=== PATIENT | female | born 1940 | race Caucasian/White ===

== ENCOUNTER 2017-09-21 08:09 | Day surgery (SDC) | payer MEDICARE, OTHER, SELFPAY ==
[2017-09-13 12:36] VITALS: BMI 25.0
[2017-09-21] VITALS (9 sets, daily range): BP systolic 110–157; BP diastolic 71–84; PULSE 70–88; RESP 15–16; TEMP 35.9–36.3; O2SAT 94–99; BMI 25.0
[2017-09-21] MEDS: LACTATED RINGERS 1,000 ML 42 ML IV (08:47)
--- NOTE | 2017-09-21 08:59 | P.HP_ITS ---
History of Present Illness Date Patient Seen: 09/21/17 Time Patient Seen: 08:54 Chief complaint: hernia repair [id number] Narrative: Patient is a woman here for repair of a left inguinal hernia. She has a renal mass with his evaluated by others. She has been in AFib in the past her rate is well controlled with amiodarone and a beta-buck. Had a recent echocardiogram that showed no deteriorate with an injection fraction of 40-45%. She does not tolerate narcotics while at all. They cause severe nausea even with the use of preventative medication. She has a renal mass that is under evaluation by others. Patient History Medical History Arthritis (Acute) Cardiomyopathy (Acute) Constipation (Acute) GERD (gastroesophageal reflux disease) (Acute) Hemorrhoids (Acute) History of tumor (Acute) Hyperlipidemia (Acute) Irregular heartbeat (Acute) PFO (patent foramen ovale) (Acute) Pneumonia (Acute) Sinus drainage (Acute) UTI (urinary tract infection) (Acute) Urinary frequency (Acute) Urinary urgency (Acute) Surgical History History of bilateral tubal ligation (Acute) History of cataract removal with insertion of prosthetic lens Status post breast biopsy Status post colonoscopy Status post tubal ligation Family & Social History Family History: Reviewed 09/21/17 by Jose Kelly MD Social History: household members spouse Tobacco & Substance use: Smoking Status Never smoker alcohol intake current Substance Use Type does not use Meds Home Medications Medication Instructions Recorded Confirmed Type aspirin 81 mg PO DAILY #0 06/15/11 09/21/17 History calcium carbonate [Calcium 500] 500 mg PO DAILY #0 01/02/12 09/21/17 History atorvastatin [Lipitor] 20 mg PO HS #0 07/04/16 09/21/17 History magnesium oxide 500 mg PO Q DAY #0 07/04/16 09/21/17 History amiodarone 100 mg PO QDAY #0 05/29/17 09/21/17 History lisinopril 5 mg PO BID #0 05/29/17 09/21/17 History metoprolol succinate [Toprol XL] 25 mg PO BID #0 05/29/17 09/21/17 History ranitidine HCl [Zantac] 150 mg PO EVERY OTHER DAY #0 02/12/18 06/07/18 History zolpidem 5 mg PO HSP PRN 09/13/17 09/13/17 History cholecalciferol (vitamin D3) 1,000 unit PO DAILY 09/21/17 09/21/17 History [Vitamin D3] zolpidem [Ambien] 5 mg PO BEDTIME PRN 09/21/17 09/21/17 History Allergies Allergy/AdvReac Type Severity Reaction Status Date / Time acyclovir [ACYCLOVIR] Allergy Severe Irreg Verified 09/21/17 08:27 heart rate fentanyl Allergy Severe NAUSEA AND Verified 09/21/17 08:47 EMESIS Sulfa (Sulfonamide Allergy Severe Rash, fever Verified 09/21/17 08:27 Antibiotics) [SULFA (SULFONAMIDE ANTIBIOTICS)] cephalexin [CEPHALEXIN] Allergy Mild Rash Verified 09/21/17 08:27 Review of Systems Review of Systems All systems reviewed & are unremarkable except as noted in HPI and below Cardiovascular Comments: No chest pain. Is active. Recent echo as above. Exam Vital Signs (past 8 hours): Vital Signs - 8 hr 3 09/21/17 08:33 Temperature 96.9 F L Pulse Rate 77 Respiratory Rate 15 Blood Pressure 157/84 H Pulse Oximetry 98 Pulse Oximetry 98 Oxygen Delivery Method Room Air Narrative Exam Narrative: Operative thin woman in no apparent distress. Lungs are clear no rales rhonchi heart regular rate and rhythm despite her history of atrial fibrillation. I can hear no murmurs or gallops with her tones are distant. Abdomen is soft nontender without mass she has a left inguinal hernia and has been marked. It is reducible. Assessment & Plan Plan: Assessment/Plan Narrative: Patient with a left inguinal hernia for repair. I have discussed the procedure with her in the past and she has no questions about it. Risks of bleeding infection recurrence nerve injury have been detailed.
--- NOTE | 2017-09-21 08:59 | PM.PREOP ---
Pre-operative Note Interval Note Pre-op Check: History & Physical exam performed today H&P completed within 30 days and has changed as indicated here:: No changes
[2017-09-21] MEDS: CLINDAMYCIN 900 MG/50 ML PIGGYBACK 100 MG IV (09:00)
[2017-09-21] MEDS: BUPIVACAINE 0.5% (PF) 30 ML VIAL INJ (09:22)
--- NOTE | 2017-09-21 10:26 | PM.OP.1 ---
Operative Date/Time/Diagnoses - Date of procedure: 09/21/17 Time of procedure: 10:26 Pre-op diagnosis: Left inguinal hernia reducible without strangulation or incarceration Post-op diagnosis: same (Indirect) Procedure & Clinicians Procedure: Left inguinal hernia repair with onlay of mesh Same procedure as scheduled: Yes Indications: Symptomatic left inguinal hernia Surgeon: Jose Kelly Click Yes if Unassisted: Yes Anesthesia Type: General Operative Notes Findings: Indirect sac Closure Type: primary Specimen(s): none sent Implants & Drains: 2 x 4 in piece of Prolene mesh Estimated Blood Loss (mL): 5 Procedure in detail: The patient was placed supine on the operating room table and underwent general LMA anesthesia. SHe was prepped and draped in the usual fashion. A transverse incision was made overlying the internal ring and carried down to the level of the external oblique. The external oblique was opened parallel with its fibers through the external ring. The round ligament was identified and detached from the area of the pubic tubercle. The cremaster was opened and search made for an indirect sac. I identified an indirect sac and opened it. It was found to have no contents at this time. A pursestring of 2 of 0 silk was placed and then the sac was tied as well. Distal portion was removed and the stump allowed to retract. The floor was closed over it with an interrupted figure of 0 Tycron.. The floor was examined and was found to be somewhat weakened. A piece of Prolene mesh 2 x 4 in was placed across the floor and tacked at the pubic tubercle, the posterior lamella of the anterior rectus sheath, the ilioinguinal ligament, and superior lateral to the internal ring. Sutures of 0 Tycron were used to secure the mesh. The external oblique was closed with a running 3 0 Polysorb. The subcu was closed with interrupted 3 0 Polysorb. The skin was closed with a running 4 0 Polysorb subcuticular stitch and Steri-Strips. Dressing was applied, the patient was awakened, and the patient was taken to the recovery area in good condition. Complications: none Condition: stable Disposition: PACU Plan for aftercare: Follow-up in the office
== END 2017-09-21 11:30 | disposition home or self-care (01) ==
PROVIDERS: PCP Family Medicine; Visit Provider Specialist
PROC: (CPT 49505; principal; 2017-09-21 08:45)
DX: K40.90 Unilateral inguinal hernia, without obstruction or gangrene, not specified as recurrent (principal); I48.91 Unspecified atrial fibrillation
CPT/HCPCS: 49505; C1781; J0131; J1100; J2405; J2704

== ENCOUNTER → 2017-09-28 11:47 | Outpatient (CLI) | payer MEDICARE, OTHER, SELFPAY ==
--- NOTE | 2017-09-28 | DI.RAD.S_ITS ---
This blank DEXA report has been sent in error by the PACS system. The correct and complete report will be forthcoming in 1-2 days. Thank you for your patience and understanding. Dictated by: Kasi Uribe M.D. on 09/28/2017 at 15:17 Approved by: Kasi Uribe M.D. on 09/28/2017 at 15:17
--- NOTE | 2017-09-28 | DI.US.S_ITS ---
PROCEDURE: US RENAL COMPLETE INDICATIONS: RIGHT RENAL MASS TECHNIQUE: Real-time scanning was performed of the kidneys and bladder, with image documentation. COMPARISON: [facility], CT, ABDOMEN/PELVIS WITH CONTRAST, 06/28/2017, 11:46. FINDINGS: Kidneys: Kidneys are normal in size. Right kidney measures 10.5 cm long; left kidney measures 10.6 cm long. Right renal cortical thickness is 0.9 cm; left renal cortical thickness is 1.3 cm. Renal cortical echotexture is normal. No hydronephrosis or nephrolithiasis. Solid echogenic mass again visualized without any intralateral aspect of the right kidney increased in size now measuring 2.8 x 3.3 x 3.0 cm. Left renal peripelvic cysts present measuring roughly 14 mm. Bladder: Pre-void bladder volume is 133 mL. Post-void residual is 0 mL. Pre-void images demonstrate no intraluminal masses or stones. On pre-void images, neither ureteral jets are noted with color Doppler interrogation. (Of note, ureteral jets may not be detectable in up to 25% of cases due to insufficient differences in specific gravity between ureteral and bladder urine). Miscellaneous: No free pelvic fluid. IMPRESSION: Increase in size of solid exophytic inferior pole right renal mass compared to prior examination suspicious for renal cell carcinoma. Dictated by: Wali Mendoza RRA Interpreted: Ritika Henry MD on 09/28/2017 at 14:16 Approved by: Ritika Henry MD, PhD on 09/29/2017 at 9:27
== END ==
PROVIDERS: PCP Family Medicine; Visit Provider Family Medicine
DX: N28.89 Other specified disorders of kidney and ureter (principal); M85.852 Other specified disorders of bone density and structure, left thigh; Z78.0 Asymptomatic menopausal state; Z82.62 Family history of osteoporosis
CPT/HCPCS: 76770; 77080

== ENCOUNTER → 2017-10-04 11:50 | Outpatient (CLI) | payer MEDICARE, OTHER, SELFPAY ==
--- NOTE | 2017-10-06 14:46 | PM.PFT.1 ---
Pulmonary Function Test Referral & Results Date Patient Seen: 10/04/17 Requesting provider: Yuniel Jacobo Indication: Amiodarone therapy Results: The spirometry demonstrates an FVC of 3.06 L which is 104% of predicted. The FEV1 was measured at 2.34 L which is 106% of predicted. The FEV1/FVC ratio was 76 which is 103% of predicted. No bronchodilator was administered Lung volumes show an SVC of 3.32 L which is 114% of predicted. The diffusing capacity was measured at 26.16 which is 97% of predicted. No hemoglobin value was provided, so no correction for potential anemia could be made, if appropriate. The maximum voluntary ventilation was slightly reduced. Interpretation: This study is essentially normal. Specifically patient's diffusing capacity was normal.
== END ==
PROVIDERS: PCP Family Medicine; Visit Provider Internal Medicine Cardiovascular Disease
DX: Z79.899 Other long term (current) drug therapy (principal)
CPT/HCPCS: 94010; 94726; 94729

== ENCOUNTER → 2017-10-31 10:44 | Outpatient (CLI) | payer MEDICARE, OTHER, SELFPAY ==
--- NOTE | 2017-10-31 | DI.MG.S_ITS ---
BILATERAL DIGITAL SCREENING MAMMOGRAM 3D/2D WITH CAD: 10/31/2017 CLINICAL: Routine screening. Family history of breast cancer. Comparison is made to exams dated: 09/21/2016 mammogram, 09/18/2015 mammogram, and 09/15/2014 mammogram - [facility]. The tissue of both breasts is heterogeneously dense. This may lower the sensitivity of mammography. Current study was also evaluated with a Computer Aided Detection (CAD) system. No significant masses, calcifications, or other findings are seen in either breast. There has been no significant interval change. IMPRESSION: NEGATIVE There is no mammographic evidence of malignancy. A 1 year screening mammogram is recommended. This exam was interpreted at Station ID: [id number]. NOTE: For mammograms, a report in lay terms will be sent to the patient. Approximately 15% of breast malignancies will not be visualized mammographically. In the management of a palpable breast mass, a negative mammogram must not discourage biopsy of a clinically suspicious lesion. Electronically Signed By: Kasi carlos/hugo:10/31/2017 15:01:44 letter sent: Normal Exam ACR BI-RADS Category 1: Negative 3341F
== END ==
PROVIDERS: PCP Family Medicine; Visit Provider Family Medicine
DX: Z12.31 Encounter for screening mammogram for malignant neoplasm of breast (principal); Z80.3 Family history of malignant neoplasm of breast
CPT/HCPCS: 77063; 77067

== ENCOUNTER → 2018-02-14 10:00 | Outpatient (CLI) | payer MEDICARE, OTHER, SELFPAY ==
--- NOTE | 2018-02-14 10:00 | DI.RAD.S_ITS ---
PROCEDURE: XR HIP W PEL IF DONE RT 2V INDICATIONS: right hip pain TECHNIQUE: 2 views of the hip were acquired. COMPARISON: None. FINDINGS: Bones: No fractures or dislocations. No suspicious bony lesions. The visualized pelvic ring appears intact. Moderate degeneration. Soft tissues: No suspicious soft tissue calcifications or masses. IMPRESSION: Mild right hip joint degeneration. Dictated by: Duncan Bravo M.D. on 02/14/2018 at 11:12 Approved by: Duncan Bravo M.D. on 02/14/2018 at 11:13
== END ==
PROVIDERS: PCP Family Medicine; Visit Provider Internal Medicine
DX: M25.551 Pain in right hip (principal); M16.11 Unilateral primary osteoarthritis, right hip
CPT/HCPCS: 73502

== ENCOUNTER → 2018-03-20 09:40 | Outpatient (CLI) | payer MEDICARE, OTHER, SELFPAY ==
--- NOTE | 2018-03-20 | DI.CT.S_ITS ---
PROCEDURE: CT ABDOMEN PELVIS WO/W CON INDICATIONS: RENAL MASS, RIGHT TECHNIQUE: Optional 5 mm thick noncontrast images acquired from the diaphragm to the symphysis pubis. After the administration of intravenous contrast, 5 mm thick images acquired from the diaphragm to the symphysis pubis during arterial phase, and after a 10-minute delay. 2 mm thick coronal and sagittal reformats were then performed of the kidneys and ureters. For radiation dose reduction, the following was used: automated exposure control, adjustment of mA and/or kV according to patient size. COMPARISON: [facility], CT, ABDOMEN/PELVIS WITH CONTRAST, 06/28/2017, 11:46. FINDINGS: Image quality: Excellent. Lung bases: Lung bases are clear. Heart size is enlarged. Urinary system: There is grossly unchanged appearance of exophytic mass along posterior cortex of the right kidney measuring 2.2 x 2.1 cm on axial image 81 series 5. There is internal increased soft tissue attenuation. Unchanged subcentimeter presumed cyst in the upper pole right kidney on image 56, technically too small to characterize definitively. No invasion of the right renal vein Simple appearing left renal cyst on image 63 series 5 also appears unchanged. Renal calyces appear normal in morphology when filled with contrast. Opacified portions of both ureters demonstrate normal caliber. Bladder wall thickness is normal. No calcified bladder stones. Other solid organs: A presumed right hepatic hemangioma appears grossly unchanged. Subcentimeter hypodensities seen in the region of the gallbladder fossa are also unchanged although technically too small to characterize. Gallbladder contains multiple sub-5 mm gallstones without evidence of acute cholecystitis. Biliary system is non dilated. Pancreas enhances normally. Spleen is normal in size and enhancement. No adrenal nodules. Peritoneum and bowel: Small hiatal hernia as before. Otherwise bowel loops demonstrate normal wall thickness and caliber. No free fluid or air. Nodes and vessels: No retroperitoneal or mesenteric adenopathy by size criteria. Aorta and inferior vena cava are normal in size. Abdominal wall: No ventral hernias. Pelvis: No pathologic free pelvic fluid. No inguinal hernias or adenopathy. Bones: No suspicious bony lesions. Incidentally noted scoliosis No vertebral body compression fractures. IMPRESSION: Unchanged appearance of presumed renal cell carcinoma involving the right kidney posterior cortex as before since 06/28/17. No hydronephrosis. No evidence of distant metastatic disease. Cholelithiasis as before. Dictated by: Duncan Bravo M.D. on 03/20/2018 at 10:56 Approved by: Duncan Bravo M.D. on 03/20/2018 at 11:05
[2018-03-20 10:13] LABS: BUN Creatinine Ratio 24.5 (6-22); Blood Urea Nitrogen 27 mg/dL (7-17)
== END ==
PROVIDERS: PCP Family Medicine; Visit Provider Urology
DX: N28.89 Other specified disorders of kidney and ureter (principal); K80.20 Calculus of gallbladder without cholecystitis without obstruction
CPT/HCPCS: 36415; 74178; 82565; 84520; Q9967

== ENCOUNTER → 2018-08-07 09:49 | Outpatient (CLI) | payer MEDICARE, OTHER, SELFPAY ==
--- NOTE | 2018-08-07 | DI.US.S_ITS ---
PROCEDURE: US RENAL COMPLETE INDICATIONS: DISORDER OF KIDNEY, URETER, RT RENAL MASS TECHNIQUE: Real-time scanning was performed of the kidneys and bladder, with image documentation. COMPARISON: [facility], US, ABDOMEN LIMITED, 06/15/2017, 10:35. [facility], CT, ABDOMEN/PELVIS WITH CONTRAST, 06/28/2017, 11:46. [facility], CT, CT ABDOMEN PELVIS WO/W CON, 03/20/2018, 10:15. [facility], US, US RENAL COMPLETE, 09/28/2017, 12:00. FINDINGS: Kidneys: Right kidney measures 10.1 cm long. Right renal cortical thickness is 1.7 cm. There is a 2.9 x 3.0 x 3.0 cm hyperechoic mass in the inferior lateral right kidney unchanged in size compared with the last exam dated 09/28/2017. No right hydronephrosis. Left kidney measures 11.1 cm long. Left renal cortical thickness is 1.3 cm. there is mild left hydronephrosis. No left nephrolithiasis. A simple appearing cyst is noted in the upper pole of the left kidney measuring 2.8 x 2.5 x 2.3 cm. Bladder: Pre-void bladder volume is 537 mL. Post-void residual is 60 mL. Pre-void images demonstrate no intraluminal masses or stones. On pre-void images, both ureteral jets are noted with color Doppler interrogation. (Of note, ureteral jets may not be detectable in up to 25% of cases due to insufficient differences in specific gravity between ureteral and bladder urine). Miscellaneous: No free pelvic fluid. IMPRESSION: 1. Stable hyperechoic solid mass in the lateral aspect of the inferior pole of the right kidney. Presumably a renal cell carcinoma. 2. A simple appearing cyst in the left kidney. 3. Mild left renal pelviectasis. Dictated by: Mat Kruse M.D. on 08/07/2018 at 11:44 Approved by: Mat Kruse M.D. on 08/07/2018 at 11:53
== END ==
PROVIDERS: PCP Family Medicine; Visit Provider Urology
DX: N28.89 Other specified disorders of kidney and ureter (principal); N28.1 Cyst of kidney, acquired
CPT/HCPCS: 76770

== ENCOUNTER → 2018-08-16 11:01 | Outpatient (CLI) | payer MEDICARE, OTHER, SELFPAY ==
[2018-08-16 12:19] LABS: Alanine Aminotransferase 30 IU/L (9-52); Albumin 4.6 g/dL (3.5-5.0); Albumin Globulin Ratio 1.6 (1.0-2.8); Alkaline Phosphatase 102 U/L (38-126); Aspartate Aminotransferase 37 IU/L (14-36); BUN Creatinine Ratio 24.5 (6-22); Bilirubin Total 0.6 mg/dL (0.2-1.3); Blood Urea Nitrogen 27 mg/dL (7-17); Calcium 9.9 mg/dL (8.4-10.2); Carbon Dioxide 31 mmol/L (22-32); Chloride 100 mmol/L (98-107); Cholesterol 214 mg/dL (140-199); Estimated Glomerular Filt Rate 47.9 mL/min (>60); Globulin 2.9 g/dL (1.7-4.1); Glucose 77 mg/dL (80-110); HDL Cholesterol 49 mg/dL (40-60); HEMOLYSIS < 15 (0-50); LDL Cholesterol Calculated 124 mg/dL (<100); Sodium 141 mmol/L (137-145); Total Protein 7.5 g/dL (6.3-8.2); Triglycerides 203 mg/dL (35-150)
[2018-08-16 12:25] LABS: Creatinine Urine Random 66.2 mg/dL
[2018-08-16 12:26] LABS: Microalbumin Urine Random 0.8 mg/dL (0-1.6)
[2018-08-16 12:58] LABS: TSH w/ Reflex to FT4 2.65 uIU/mL (0.47-4.68)
== END ==
PROVIDERS: PCP Family Medicine; Visit Provider Family Medicine
DX: I50.22 Chronic systolic (congestive) heart failure (principal); E06.4 Drug-induced thyroiditis; T46.2X5A Adverse effect of other antidysrhythmic drugs, initial encounter; I11.0 Hypertensive heart disease with heart failure
CPT/HCPCS: 36415; 80053; 80061; 82043; 82570; 84443

== ENCOUNTER → 2018-10-03 09:39 | Outpatient (CLI) | payer MEDICARE, OTHER, SELFPAY ==
--- NOTE | 2018-10-03 09:44 | DI.US.S_ITS ---
PROCEDURE: US SOFT TISSUE HEAD AND NECK INDICATIONS: SWOLLEN SUBMANDIBULAR LYMPH NODE? TECHNIQUE: Real-time scanning was performed of the neck region of interest, with image documentation. COMPARISON: None. FINDINGS: Focused ultrasound examination in left submandibular region at patient reported site of palpable lump shows 1.6 x 0.4 cm lymph node adjacent to left carotid bulb with cortical thickness measures 1.3 mm. IMPRESSION: Benign appearing lymph nodes seen in left submandibular region superficial to torturous left carotid bulb. No soft tissue mass or fluid collection is seen. Dictated by: Catrachito Franco M.D. on 10/03/2018 at 13:04 Approved by: Catrachito Franco M.D. on 10/03/2018 at 13:05
[2018-10-03 11:37] LABS: Basophils Absolute Auto 0 /uL (0-100); Eosinophils Absolute Auto 200 /uL (0-450); Eosinophils Percent Auto 5.7 % (2-4); Lymphocytes Absolute Auto 1200 /uL (1100-4500); Monocytes Absolute Auto 400 /uL (0-900); Neutrophils Absolute Auto 2200 /uL (1500-7000); White Blood Cell Count 4.1 X10^3/uL (4.5-11.0)
[2018-10-03 11:46] LABS: Add Manual Diff / Slide Review NO; Basophils Percent Auto 1.1 % (0-2); Hemoglobin 14.7 g/dL (12.0-16.0); Lymphocytes Percent Auto 28.8 % (25-40); Mean Corpuscular HGB Conc 32.6 % (30-36); Mean Corpuscular Hemoglobin 30.3 PG (26-34); Monocytes Percent Auto 9.7 % (3-14); Neutrophils Percent Auto 54.7 % (50-75); Platelet Count 175 X10^3/uL (150-400); Red Blood Cell Count 4.84 X10^6/uL (4.0-5.2); Red Cell Distribution Width 13.5 % (11.6-14.8)
== END ==
PROVIDERS: PCP Family Medicine; Visit Provider Family Medicine
DX: R59.0 Localized enlarged lymph nodes (principal)
CPT/HCPCS: 36415; 76536; 85025

== ENCOUNTER → 2018-11-21 11:31 | Outpatient (CLI) | payer MEDICARE, OTHER, SELFPAY ==
[2018-11-21 12:36] LABS: Blood Urea Nitrogen 28 mg/dL (7-17); Estimated Glomerular Filt Rate 53.5 mL/min (>60)
== END ==
PROVIDERS: PCP Family Medicine; Visit Provider Otolaryngology
DX: R22.1 Localized swelling, mass and lump, neck (principal)
CPT/HCPCS: 36415; 82565; 84520

== ENCOUNTER → 2018-11-28 09:33 | Outpatient (CLI) | payer MEDICARE, OTHER, SELFPAY ==
--- NOTE | 2018-11-28 10:06 | DI.CT.S_ITS ---
PROCEDURE: CT SOFT TISSUE NECK W CON INDICATIONS: Localized swelling, mass and lump, neck TECHNIQUE: After the administration of intravenous contrast, 3.0 mm axial sections acquired from the sella to the aortic arch. Additional oblique axial 3.0 mm sections acquired through the pharynx. 3 mm thick coronal and sagittal reformats were generated. For radiation dose reduction, the following was used: automated exposure control. COMPARISON: [facility], , US SOFT TISSUE HEAD AND NECK, 10/03/2018, 10:05. [facility], CT, SINUS SCREEN, 02/18/2009, 8:38. FINDINGS: Image quality: Excellent. Lymph nodes: No enlarged lymph nodes seen throughout the neck. Vessels: Visualized vasculature appears patent. Neck spaces: The oropharynx, nasopharynx, and pharynx demonstrate no mucosal lesions. The vocal cords, false vocal cords, pyriform sinuses, epiglottis, vallecula, and tongue base all appear normal. One of the areas of clinical concern is seen involving the left lateral neck. This is placed immediately over the left sternocleidomastoid muscle. No masses, lipomas, fluid collections, or enlarged lymph nodes can be seen within this region. Glands: One of the areas of clinical concern can be seen overlying the right. At this site, there is a partially exophytic mass seen involving the medial right thyroid that measures 1.5 x 1.7 cm in greatest axial dimension, with a craniocaudal extent of 2.3 cm. There is a subcentimeter cystic appearing lesion within the superior right thyroid as well. The parotid and submandibular glands appear normal. Miscellaneous: Visualized brain and orbits appear normal. Lung apices appear clear. Superficial soft tissues appear normal. Bones: No suspicious bony lesions. There is a mucous retention cyst seen within the left maxillary sinus. No abnormal fluid can be seen within the mastoid air cells. Age-appropriate bony degenerative changes are seen. IMPRESSION: At one of the areas of clinical concern, there is a 2.3 cm thyroid lesion. A followup thyroid ultrasound is now recommended. At the 2nd area of clinical concern involving the left lateral neck, no focal abnormalities are seen. The marker is placed immediately over the left sternocleidomastoid muscle. Dictated by: Ganesh Carson M.D. on 11/28/2018 at 12:42 Approved by: Ganesh Carson M.D. on 11/28/2018 at 12:47
== END ==
PROVIDERS: PCP Family Medicine; Visit Provider Otolaryngology
DX: R22.1 Localized swelling, mass and lump, neck (principal); E07.9 Disorder of thyroid, unspecified
CPT/HCPCS: 70491; Q9967

== ENCOUNTER → 2018-12-12 09:24 | Outpatient (CLI) | payer MEDICARE, OTHER, SELFPAY ==
--- NOTE | 2018-12-12 09:25 | DI.US.S_ITS ---
PROCEDURE: US THYROID INDICATIONS: THYROID NODULE TECHNIQUE: Real-time scanning was performed of the thyroid gland, with image documentation. COMPARISON: None. FINDINGS: Right: Thyroid lobe measures 5.2 x 1.5 x 1.8 cm, and is homogeneous in echotexture. Left: Thyroid lobe measures 4.8 x 1.6 x 1.3 cm, and is homogenous in echotexture. Isthmus: 4.0 mm thick. Nodule number: 1 Location: Right mid Size: 2.1 x 1.2 x 1.6 cm. Composition: Predominantly solid Echogenicity: Hyperechoic Shape: wider than tall. Margins: Smooth Echogenic foci: Internal punctate echogenic foci. Total points: 6 ACR TI-RADS category: Moderately suspicious Nodule number: 2 Location: Right inferior Size: 1.3 x 1.0 x 1.1 cm. Composition: Solid Echogenicity: Hypoechoic Shape: wider than tall. Margins: Smooth Echogenic foci: Internal echogenic punctate foci. Total points: 7 ACR TI-RADS category: Highly suspicious Nodule number: 3 Location: Left mid Size: 1.0 x 0.8 x 0.9 cm. Composition: Predominantly solid Echogenicity: Isoechoic Shape: wider than tall. Margins: Smooth Echogenic foci: Internal punctate echogenic foci Total points: 6 ACR TI-RADS category: Moderately suspicious IMPRESSION: Bilateral thyroid nodules as above. Recommend ultrasound directed fine needle aspiration involving the right # 1 and # 2 nodules. ACR TI-RADS definitions and recommendations: TI-RADS 1 (benign): 0 points. FNA not needed. TI-RADS 2 (not suspicious): 2 points. FNA not needed. TI-RADS 3 (mildly suspicious): 3 points. * FNA if 2.5 cm or larger, follow up if 1.5 cm or larger (at 1, 3, and 5 years). TI-RADS 4 (moderately suspicious): 4-6 points. * FNA if 1.5 cm or larger, follow up if 1 cm or larger (at 1, 2, 3, and 5 years). TI-RADS 5 (highly suspicious): 7 points or more. * FNA if 1 cm or larger, follow up if 0.5 cm or larger (every year for 5 years). Dictated by: Wali MATA Interpreted: Catrachito Franco MD on 12/12/2018 at 11:01 Approved by: Catrachito Franco M.D. on 12/12/2018 at 11:41
== END ==
PROVIDERS: PCP Family Medicine; Visit Provider Family Medicine
DX: E04.1 Nontoxic single thyroid nodule (principal); Z12.31 Encounter for screening mammogram for malignant neoplasm of breast
CPT/HCPCS: 76536

== ENCOUNTER → 2018-12-21 13:00 | Outpatient (CLI) | payer MEDICARE, OTHER, SELFPAY ==
--- NOTE | 2018-12-21 | DI.MG.S_ITS ---
BILATERAL DIGITAL SCREENING MAMMOGRAM 3D/2D WITH CAD: 12/21/2018 CLINICAL: Routine screening. Family history of breast cancer. Comparison is made to exams dated: 10/31/2017 mammogram, 09/21/2016 mammogram, and 09/18/2015 mammogram - [facility]. The tissue of both breasts is heterogeneously dense. This may lower the sensitivity of mammography. Current study was also evaluated with a Computer Aided Detection (CAD) system. There is an irregular asymmetry in the left breast anterior to middle depth lateral region seen on the craniocaudal view only. There is possible architectural distortion associated with the asymmetry. There are bilateral vascular calcifications. There is a circular mole marker overlying the left breast. No other significant masses, calcifications, or other findings are seen in either breast. IMPRESSION: INCOMPLETE: NEEDS ADDITIONAL IMAGING EVALUATION The irregular asymmetry in the left breast anterior to middle depth lateral region seen on the craniocaudal view only is indeterminate. Additional views with possible ultrasound are recommended. This exam was interpreted at Station ID: [id number]. NOTE: For mammograms, a report in lay terms will be sent to the patient. Approximately 15% of breast malignancies will not be visualized mammographically. In the management of a palpable breast mass, a negative mammogram must not discourage biopsy of a clinically suspicious lesion. Electronically Signed By: Michel Medellin M.D. ecl/:12/21/2018 17:48:58 letter sent: Additional Imaging Needed ACR BI-RADS Category 0: Incomplete 3340F
== END ==
PROVIDERS: PCP Family Medicine; Visit Provider Family Medicine
DX: Z12.31 Encounter for screening mammogram for malignant neoplasm of breast (principal); Z80.3 Family history of malignant neoplasm of breast
CPT/HCPCS: 77063; 77067

== ENCOUNTER → 2019-01-08 12:59 | Outpatient (CLI) | payer MEDICARE, OTHER, SELFPAY ==
--- NOTE | 2019-01-08 | DI.MG.S_ITS ---
UNILATERAL LEFT DIGITAL DIAGNOSTIC MAMMOGRAM 3D/2D WITH ADDITIONAL VIEWS: 01/08/2019 CLINICAL: Additional evaluation requested from prior study. Comparison is made to exams dated: 12/21/2018 mammogram, 10/31/2017 mammogram, and 09/21/2016 mammogram - [facility]. The tissue of left breast is heterogeneously dense. This may lower the sensitivity of mammography. The asymmetry in the left breast anterior depth lateral region seen on the craniocaudal view only is not seen in additional views. No other significant masses or calcifications are seen in the breast. IMPRESSION: There is no mammographic evidence of malignancy. A 1 year screening mammogram is recommended. This exam was interpreted at Station ID: [id number]. NOTE: For mammograms, a report in lay terms will be sent to the patient. Approximately 15% of breast malignancies will not be visualized mammographically. In the management of a palpable breast mass, a negative mammogram must not discourage biopsy of a clinically suspicious lesion. Electronically Signed By: Whitney Gentile M.D. lk/:01/08/2019 13:31:41 letter sent: Normal Exam ACR BI-RADS Category 2: Benign Finding(s) 3342F
== END ==
PROVIDERS: PCP Family Medicine; Referring Provider Otolaryngology; Visit Provider Family Medicine
DX: R92.8 Other abnormal and inconclusive findings on diagnostic imaging of breast (principal)
CPT/HCPCS: 77065; G0279

== ENCOUNTER → 2019-04-02 09:53 | Outpatient (CLI) | payer MEDICARE, OTHER, SELFPAY ==
--- NOTE | 2019-04-02 10:19 | DI.CT.S_ITS ---
PROCEDURE: CT ABDOMEN WO/W CON INDICATIONS: RENAL MASS TECHNIQUE: Optional 5 mm thick noncontrast images acquired from the diaphragm to the iliac crests. After the administration of intravenous contrast, 5 mm thick images again acquired from the diaphragm to the iliac crests in the arterial and urographic phases. 5 mm thick coronal and sagittal reformats were then acquired. For radiation dose reduction, the following was used: automated exposure control, adjustment of mA and/or kV according to patient size. COMPARISON: [facility], US, ABDOMEN LIMITED, 06/15/2017, 10:35. [facility], US, US RENAL COMPLETE, 09/28/2017, 12:00. [facility], CT, ABDOMEN/PELVIS WITH CONTRAST, 06/28/2017, 11:46. [facility], CT, CT ABDOMEN PELVIS WO/W CON, 03/20/2018, 10:15. FINDINGS: Image quality: Excellent. Lung bases: Lung bases are clear. Heart size is normal. Small hiatal hernia. Genitourinary: There is an exophytic mass in the inferior pole of the right kidney demonstrating mixed soft tissue and fat attenuation with heterogeneous enhancement measuring 2.5 x 2.2 x 2.5 cm, unchanged in size since 06/28/2017. There are renal cortical cysts are present bilaterally. No renal stones or hydronephrosis. Other solid organs: The liver contains a 1.8 cm mass in the posterior segment of the right hepatic lobe under the posterior hepatic capsule, demonstrating peripheral enhancement consistent with a hemangioma. Liver is normal in size. Gallbladder contains gallstones. Biliary system is non dilated. Pancreas enhances normally. Spleen is normal in size and enhancement. Calcified densities in spleen may be old granulomas. No adrenal nodules. Peritoneum and bowel: Unenhanced bowel loops are normal in wall thickness and caliber. No free fluid or air. Nodes and vessels: No retroperitoneal or mesenteric adenopathy by size criteria. Aorta isnormal in caliber with mild atherosclerosis. The right renal vein is patent, as well as the IVC. Bones: No suspicious bony lesions. No vertebral body compression fractures. Mild scoliosis. Degenerative changes noted in lumbar spine. Miscellaneous: No ventral hernias. IMPRESSION: 1. Stable exophytic heterogeneous enhancing mass inferior pole the right kidney since 06/28/2017. This may be a fat containing renal cell carcinoma or angiomyolipoma. 2. No lymphadenopathy or distant metastasis. 3. A 1.8 cm hepatic hemangioma in the posterior segment of the right hepatic lobe. 4. Cholelithiasis. 5. Small hiatal hernia. Dictated by: Mat Kruse M.D. on 04/02/2019 at 16:22 Approved by: Mat Kruse M.D. on 04/02/2019 at 16:44
== END ==
PROVIDERS: PCP Family Medicine; Visit Provider Urology
DX: N28.89 Other specified disorders of kidney and ureter (principal); D18.09 Hemangioma of other sites; K80.20 Calculus of gallbladder without cholecystitis without obstruction; K44.9 Diaphragmatic hernia without obstruction or gangrene
CPT/HCPCS: 74170; Q9967

== ENCOUNTER → 2019-10-25 12:05 | Outpatient (CLI) | payer MEDICARE, OTHER, SELFPAY ==
[2019-10-25 13:48] LABS: Alanine Aminotransferase 27 IU/L (<35); Albumin 4.5 g/dL (3.5-5.0); Albumin Globulin Ratio 1.7 (1.0-2.8); Alkaline Phosphatase 105 U/L (38-126); Aspartate Aminotransferase 39 IU/L (14-36); BUN Creatinine Ratio 30.2 (6-22); Bilirubin Total 0.8 mg/dL (0.2-1.3); Blood Urea Nitrogen 29 mg/dL (7-17); Carbon Dioxide 32 mmol/L (22-32); Chloride 102 mmol/L (98-107); Estimated Glomerular Filt Rate 55.9 mL/min (>60); Globulin 2.7 g/dL (1.7-4.1); Glucose 76 mg/dL (80-110); HEMOLYSIS < 15 (0-50); Potassium 4.9 mmol/L (3.4-5.1); Sodium 139 mmol/L (137-145); Total Protein 7.2 g/dL (6.3-8.2)
== END ==
PROVIDERS: PCP Family Medicine; Referring Provider Family Medicine; Visit Provider Family Medicine
DX: I10 Essential (primary) hypertension (principal); N18.9 Chronic kidney disease, unspecified
CPT/HCPCS: 36415; 80053

== ENCOUNTER → 2020-01-03 11:24 | Outpatient (CLI) | payer MEDICARE, OTHER, SELFPAY ==
[2020-01-05 15:32] LABS: COVID19 Sendout Not Detected (Not Detect)
== END ==
PROVIDERS: PCP Family Medicine; Visit Provider Physician Assistant
DX: Z11.59 Encounter for screening for other viral diseases (principal)
CPT/HCPCS: 87635

== ENCOUNTER 2020-01-06 10:37 | Day surgery (SDC) | payer MEDICARE, OTHER, SELFPAY ==
[2020-01-06] VITALS (8 sets, daily range): BP systolic 102–152; BP diastolic 54–84; PULSE 55–72; RESP 12–17; TEMP 36.2–36.9; O2SAT 95–99; BMI 25.0
--- NOTE | 2020-01-06 | PATH_ITS ---
[facility] Accession Number: [id number] . 01 Material submitted: . PART A: cecum - CECUM POLYP PART B: colon - POLYP @25 CM . 01 Clinical history: . SCD . 02 Diagnosis: A. Cecum, Polyp, Biopsy: Benign lymphoid aggregate. . B. Colon, Polyp at 25 cm, Biopsy: Hyperplastic polyp. [facility] 01/09/2020 1544 Local . 02 Electronically signed: . Suni Baker MD, Pathologist NPI- [id number] . 01 Gross description: . Part A: CECUM POLYP: Received in formalin is 1 fragment(s) of murry, soft tissue measuring 0.3 x 0.2 x 0.2 cm submitted entirely in 1 cassette(s) Part B: POLYP @25 CM: Received in formalin are 3 fragment(s) of murry, soft tissue measuring 0.1 x 0.1 x 0.1 cm to 0.4 x 0.4 x 0.2 cm submitted entirely in 1 cassette(s) /DION 01/08/2020 0006 Local . 02 Pathologist provided ICD-10: K63.5 . 02 CPT . 550134, [id number] Performed at: 01 [facility] [address], [place], [place] [id number] MD Wesly Viveros MD Phone: [phone] Performed at: 02 [facility] [address] [place], [place] [id number] MD Suni Baker MD Phone: [phone]
[2020-01-06] MEDS: ACETAMINOPHEN 325 MG TABLET 975 MG PO (11:57)
[2020-01-06] MEDS: LACTATED RINGERS 1,000 ML 42 ML IV (11:58)
--- NOTE | 2020-01-06 12:05 | PM.HP.1 ---
History of Present Illness History of Present Illness Date Patient Seen: 01/06/20 Time Patient Seen: 12:00 Chief complaint: SDC Narrative: The patient is woman here for screening colonoscopy. She has a family history colon cancer. She thinks her last colonoscopy was about 16 years ago. Patient History Medical History Arthritis (Chronic) Cardiomyopathy (Acute) Chickenpox (Resolved) Constipation (Chronic) GERD (gastroesophageal reflux disease) (Chronic) Hemorrhoids (Chronic) History of tumor (Resolved) Hyperlipidemia (Chronic) Hypertension (Chronic) Inguinal hernia of left side without obstruction or gangrene (Resolved 05/29/17) Irregular heartbeat (Chronic) Measles (Resolved) Osteopenia (Chronic) PFO (patent foramen ovale) (Chronic) Pneumonia (Resolved) Sinus drainage (Chronic) Thyroid nodule (Acute) Tinnitus (Chronic) UTI (urinary tract infection) (Chronic) Surgical History Anesthesia complication (Inactive) H/O left inguinal hernia repair (Inactive) History of bilateral tubal ligation (Acute) History of cataract removal with insertion of prosthetic lens Status post breast biopsy Status post colonoscopy Status post tubal ligation Family & Social History Family History Mother History of colon cancer Brother No problems noted. Brother No problems noted. Father No problems noted. Grandmother No problems noted. Grandmother No problems noted. Social History: household members spouse Tobacco & Substance use: Smoking Status Never smoker alcohol intake current alcohol intake frequency a few times a month Substance Use Type does not use Meds Home Medications and Allergies Home Medications Medication Instructions Recorded Confirmed Type magnesium oxide 500 mg PO Q DAY #0 07/04/16 01/06/20 History cholecalciferol (vitamin D3) 1,000 unit PO DAILY 09/21/17 01/06/20 History [Vitamin D3] lisinopril 5 mg tablet 5 mg PO DAILY 10/25/19 01/06/20 History metoprolol succinate 100 mg 100 mg PO BID 10/25/19 01/06/20 History tablet,extended release 24 hr Allergies Allergy/AdvReac Type Severity Reaction Status Date / Time acyclovir [ACYCLOVIR] Allergy Severe Irreg Verified 01/06/20 11:06 heart rate fentanyl Allergy Severe NAUSEA AND Verified 01/06/20 11:06 EMESIS Sulfa (Sulfonamide Allergy Severe Rash, fever Verified 01/06/20 11:06 Antibiotics) [SULFA (SULFONAMIDE ANTIBIOTICS)] cephalexin [CEPHALEXIN] Allergy Mild Rash Verified 01/06/20 11:06 clindamycin Allergy Mild Lip Verified 01/06/20 11:06 swelling amoxicillin Allergy Rash Verified 01/06/20 11:06 Review of Systems Review of Systems Narrative: No chest pain shortness of breath cough black or bloody bowel movement seizures or blackouts. Exam Vital Signs (past 8 hours): - 01/06/20 11:14 Temperature 97.8 F Pulse Rate 72 Respiratory Rate 12 Blood Pressure 152/84 H Pulse Oximetry 99 Oxygen Delivery Method Room Air Narrative Exam Narrative: Pleasant cooperative patient no apparent distress. Lungs are clear to auscultation. No rales or rhonchi. Heart regular rate and rhythm no murmur gallop. Abdomen is soft nontender without mass. No obvious hernias. Patient is alert and oriented x3. Assessment & Plan Assessment & Plan narrative: The patient for a screening colonoscopy. I have discussed the procedure with them. Risks of bleeding, perforation which would necessitate major operation, failure to find remove all lesions, the potential tattoo were all discussed. All questions were answered. They wished to proceed.
--- NOTE | 2020-01-06 12:10 | PM.PREOP ---
Pre-operative Note COVID-19 COVID-19 status: Negative Result date/Date tested (Pos, Neg/Pending): 01/03/20 Interval Note History & Physical reviewed/Exam performed by Physician: Yes Changes to H&P: No
--- NOTE | 2020-01-06 12:41 | PM.OP.ENDO ---
Operative Date/Time/Diagnoses Date of procedure: 01/06/20 Time of procedure: 12:41 Pre-op diagnosis: Screening exam. Last exam 16 years ago per her history. Post-op diagnosis: same Procedure & Clinicians Study performed: Colonoscopy with cold biopsy Same procedure as scheduled: Yes Indications: Screening. Patient has a family history of colon cancer. Surgeon: Jose Kelly Procedure Notes SCOAP/Timeout: Performed Procedure in detail: The patient was placed in the left lateral decubitus position and underwent IV sedation directed by the anesthesiologist. They were involved because the patient has a severe reaction to narcotics and therefore nonnarcotic sedation was necessary.. Digital exam was remarkable for some narrowing at the anus.. The scope was inserted and advanced through the rectum into the sigmoid, descending, transverse, and ascending colon. No lesions were seen. The cecum was reached identified by the ileocecal valve and the appendiceal opening. There was a very small polyp near the appendiceal opening which was biopsied and removed. The scope was gradually brought out. Polyps were found at around 25 cm from the anal verge. There were 3 of them in all were quite small. They may not be neoplastic. They were removed.. The scope ultimately was retroflexed in the rectum. The appearance was normal. The scope was removed and the patient tolerated the procedure well. The prep was very good. Scope withdrawal time: 6 minutes(8 total) Sedation minutes: 0 (Deep sedation provided by the anesthesiologist.) Findings: polyp (Small polyps) Specimen(s): other (Polyps) Complications: none Post-procedure Recommendations: Colonscopy in 5 years (If in good health.) Follow up: as needed Disposition: PACU
--- NOTE | 2020-01-06 13:40 | SUR.PHASEII ---
Pt up to br, gait steady, getting dressed now. All dc instructions given by EZIO Ponce and pt verbalizes understanding. No c/o.
--- NOTE | 2020-01-06 13:49 | SUR.PHASEII ---
1349-Pt dcd via wc in stable condition with no c/o. Family, daughter and at bs earlier and all dc instructions given to pt and family all verbalize understanding
--- NOTE | 2020-01-06 14:16 | SUR.PHASEI ---
1243 late entry arrived to PACU sleeping quietly 1310 VSS, Aroused spontaneously, denies pain. 1315 HOB elevated, water give. Oriented and pleasant 1320 To OPD, report given
== END 2020-01-06 13:50 | disposition home or self-care (01) ==
PROVIDERS: PCP Family Medicine; Referring Provider Family Medicine; Visit Provider Specialist
PROC: 0DJD8ZZ Inspection of Lower Intestinal Tract, Via Natural or Artificial Opening Endoscopic (ICD-10-PCS; CPT 45378; principal; 2020-01-06 12:15)
DX: Z12.11 Encounter for screening for malignant neoplasm of colon (principal); Z80.0 Family history of malignant neoplasm of digestive organs; I10 Essential (primary) hypertension; K21.9 Gastro-esophageal reflux disease without esophagitis; K63.5 Polyp of colon
CPT/HCPCS: 45380; J2704

== ENCOUNTER → 2020-01-15 10:39 | Outpatient (CLI) | payer MEDICARE, OTHER, SELFPAY ==
--- NOTE | 2020-01-15 | DI.MG.S_ITS ---
BILATERAL DIGITAL SCREENING MAMMOGRAM 3D/2D WITH CAD: 01/15/2020 CLINICAL: Routine screening. Family history of breast cancer. Comparison is made to exams dated: 01/08/2019 mammogram, 12/21/2018 mammogram, 10/31/2017 mammogram, and 09/21/2016 mammogram - [facility]. The tissue of both breasts is heterogeneously dense. This may lower the sensitivity of mammography. Current study was also evaluated with a Computer Aided Detection (CAD) system. There are benign vascular calcifications in both breasts. No significant masses, calcifications, or other findings are seen in either breast. There has been no significant interval change. IMPRESSION: BENIGN There is no mammographic evidence of malignancy. A 1 year screening mammogram is recommended. This exam was interpreted at Station ID: [id number]. NOTE: For mammograms, a report in lay terms will be sent to the patient. Approximately 15% of breast malignancies will not be visualized mammographically. In the management of a palpable breast mass, a negative mammogram must not discourage biopsy of a clinically suspicious lesion. Electronically Signed By: Gisselle aburto/hugo:01/15/2020 12:03:06 letter sent: Normal Exam ACR BI-RADS Category 2: Benign Finding(s) 3342F
== END ==
PROVIDERS: PCP Family Medicine; Referring Provider Family Medicine; Visit Provider Family Medicine
DX: Z12.31 Encounter for screening mammogram for malignant neoplasm of breast (principal); Z80.3 Family history of malignant neoplasm of breast
CPT/HCPCS: 77063; 77067

== ENCOUNTER → 2020-01-23 10:56 | Outpatient (CLI) | payer MEDICARE, OTHER, SELFPAY ==
--- NOTE | 2020-01-23 | DI.US.S_ITS ---
PROCEDURE: US THYROID INDICATIONS: Nontoxic multinodular goiter TECHNIQUE: Real-time scanning was performed of the thyroid gland, with image documentation. COMPARISON: [facility], US, US THYROID, 12/12/2018, 9:43. FINDINGS: Right: Thyroid lobe measures 4.9 x 2.0 x 1.2 cm, and is homogeneous in echotexture. Left: Thyroid lobe measures 5.3 x 1.8 x 1.8 cm, and is homogenous in echotexture. Isthmus: 4.1 mm thick. Nodule number: 1 Location: Right mid Size: Slightly increased at 2.3 x 2.1 x 0.9 cm. Composition: Predominantly solid Echogenicity: Predominantly isoechoic Shape: wider than tall. Margins: Smooth Echogenic foci: Punctate and large calcifications. Total points: 6 ACR TI-RADS category: Moderately suspicious Nodule number: 2 Location: Right mid inferior Size: Unchanged at 1.0 x 1.1 x 0.9 cm. Composition: Solid Echogenicity: Hypoechoic Shape: wider than tall. Margins: Smooth Echogenic foci: None Total points: 4 ACR TI-RADS category: Moderately suspicious Nodule number: 3 Location: Left superior Size: 0.6 x 0.6 x 0.3 cm. Composition: Solid Echogenicity: Hypoechoic Shape: wider than tall. Margins: Smooth Echogenic foci: None Total points: 4 ACR TI-RADS category: Moderately suspicious IMPRESSION: Slight increase in size of right #1 thyroid nodule which is moderately suspicious and has been previously biopsied. If indicated, re-biopsy could be performed under sonographic guidance. ACR TI-RADS definitions and recommendations: TI-RADS 1 (benign): 0 points. FNA not needed. TI-RADS 2 (not suspicious): 2 points. FNA not needed. TI-RADS 3 (mildly suspicious): 3 points. * FNA if 2.5 cm or larger, follow up if 1.5 cm or larger (at 1, 3, and 5 years). TI-RADS 4 (moderately suspicious): 4-6 points. * FNA if 1.5 cm or larger, follow up if 1 cm or larger (at 1, 2, 3, and 5 years). TI-RADS 5 (highly suspicious): 7 points or more. * FNA if 1 cm or larger, follow up if 0.5 cm or larger (every year for 5 years). Dictated by: Wali MATA Interpreted: Chepe Colbert MD on 01/23/2020 at 12:13 Approved by: Chepe Colbert M.D. on 01/23/2020 at 14:22
== END ==
PROVIDERS: PCP Family Medicine; Referring Provider Family Medicine; Visit Provider Internal Medicine Endocrinology, Diabetes & Metabolism
DX: E04.2 Nontoxic multinodular goiter (principal)
CPT/HCPCS: 76536

== ENCOUNTER → 2020-02-17 09:54 | Outpatient (CLI) | payer MEDICARE, OTHER, SELFPAY ==
--- NOTE | 2020-02-17 | DI.CT.S_ITS ---
PROCEDURE: CT ABDOMEN WO/W CON INDICATIONS: kidney mass TECHNIQUE: Optional 5 mm thick noncontrast images acquired from the diaphragm to the iliac crests. After the administration of intravenous contrast, 5 mm thick images again acquired from the diaphragm to the iliac crests in the arterial and urographic phases. 5 mm thick coronal and sagittal reformats were then acquired. For radiation dose reduction, the following was used: automated exposure control, adjustment of mA and/or kV according to patient size. COMPARISON: [facility], CT, CT ABDOMEN WO/W CON, 04/02/2019, 10:07. FINDINGS: Image quality: Excellent. Lung bases: Lung bases are clear. Heart size is normal. Genitourinary: Stable or minimally increased size, with unchanged appearance, appearance of enhancing exophytic right lower pole posterior fat containing renal mass. On previous image 30/3 it measured 2.8 x 2.3 cm. On current image 28/5 it measures 2.6 x 2.8 cm. 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 No other renal masses. No renal stones. Exophytic left lower pole renal cyst. No hydronephrosis. Proximal ureters are normal caliber. Other solid organs: Liver is normal in size and enhancement. Gallbladder contains tiny gallstones. No bladder wall thickening.. Biliary system is non dilated. Pancreas enhances normally. Spleen is normal in size and enhancement. No adrenal nodules. Peritoneum and bowel: Unenhanced bowel loops are normal in wall thickness and caliber. No free fluid or air. Nodes and vessels: No retroperitoneal or mesenteric adenopathy by size criteria. Aorta and inferior vena cava are normal in caliber. Bones: No suspicious bony lesions. No vertebral body compression fractures. Miscellaneous: No ventral hernias. IMPRESSION: 1. Stable size or possible minimal increase in size of a angiomyolipoma of the right kidney. This lesion remains less than 3 cm. Comment: Current recommendations are to consider possible Endovascular embolization of angiomyolipomas greater than 3 cm. This lesion remains less than 3 cm. Consider follow-up study in 12 months. Dictated by: Asa Garcia M.D. on 02/17/2020 at 12:45 Approved by: Asa Garcia M.D. on 02/17/2020 at 12:53
[2020-02-17 10:50] LABS: BUN Creatinine Ratio 22.3 (6-22); Blood Urea Nitrogen 23 mg/dL (7-17); Estimated Glomerular Filt Rate 51.6 mL/min (>60)
== END ==
PROVIDERS: PCP Family Medicine; Referring Provider Family Medicine; Visit Provider Urology
DX: D17.71 Benign lipomatous neoplasm of kidney (principal); N28.1 Cyst of kidney, acquired
CPT/HCPCS: 36415; 74170; 82565; 84520; Q9967

== ENCOUNTER → 2020-05-18 10:05 | Outpatient (CLI) | payer MEDICARE, OTHER, SELFPAY ==
[2020-05-20 09:45] LABS: Almond IgE <0.10 kU/L (Class 0); Cashew Nut IgE <0.10 kU/L (Class 0); Codfish Allergy IgE < 0.10 kU/L (Class 0); Egg White IgE <0.10 kU/L (Class 0); Hazelnut IgE <0.10 kU/L (Class 0); Milk IgE <0.10 kU/L (Class 0); Peanut IgE <0.10 kU/L (Class 0); Salmon Allergy IgE < 0.10 kU/L (Class 0); Scallop Allergy IgE < 0.10 kU/L (Class 0); Sesame seed Allergy IgE < 0.10 kU/L (Class 0); Shrimp IgE <0.10 kU/L (Class 0); Soybean IgE <0.10 kU/L (Class 0); Tuna Allergy IgE < 0.10 kU/L (Class 0); Walnut IgE <0.10 kU/L (Class 0); Wheat Allergy IgE < 0.10 kU/L (Class 0)
[2020-05-20 12:06] LABS: Alder IgE <0.10 kU/L (Class 0); Alternaria alternata IgE <0.10 kU/L (Class 0); Aspergillus fumigatus IgE <0.10 kU/L (Class 0); Box Elder IgE <0.10 kU/L (Class 0); Cladosporium herbarum IgE <0.10 kU/L (Class 0); Cockroach IgE <0.10 kU/L (Class 0); Cottonwood IgE <0.10 kU/L (Class 0); D farinae IgE <0.10 kU/L (Class 0); D pteronyssinus IgE <0.10 kU/L (Class 0); Dog Dander IgE <0.10 kU/L (Class 0); Elm Tree IgE <0.10 kU/L (Class 0); Immunoglobulin E 28 IU/mL (6-495); Mountain Cedar IgE <0.10 kU/L (Class 0); Mouse Urine Proteins IgE <0.10 kU/L (Class 0); Nettle IgE <0.10 kU/L (Class 0); Oak Tree IgE <0.10 kU/L (Class 0); Penicillium chrysogen IgE <0.10 kU/L (Class 0); Pigweed, Common IgE <0.10 kU/L (Class 0); Ragweed, Short <0.10 kU/L (Class 0); Sheep Sorrel IgE <0.10 kU/L (Class 0); Silver Birch IgE <0.10 kU/L (Class 0); Timothy Grass IgE <0.10 kU/L (Class 0); Walnut Allery IgE < 0.10 kU/L (Class 0); White ash IgE <0.10 kU/L (Class 0)
[2020-05-27 10:49] LABS: Cat Dander IgE <0.10
== END ==
PROVIDERS: PCP Family Medicine; Referring Provider Registered Nurse Diabetes Educator; Visit Provider Registered Nurse Diabetes Educator
DX: L50.9 Urticaria, unspecified (principal)
CPT/HCPCS: 36415; 82785; 86003

== ENCOUNTER → 2020-08-18 14:52 | Outpatient (CLI) | payer MEDICARE, OTHER, SELFPAY ==
--- NOTE | 2020-08-18 | DI.ECHO.S_ITS ---
[place] [facility]---------+ [facility] +---------+ : : [address] : : : : [id number] : : : : Phone: [phone] Echocardiogram Report + + :Name: NICKO DELATORRE Study Date: 08/18/2020 Height: 66 in : :[facility] ReadingLocation: Weight: 160 lb : : Gender: Female BSA: 1.8 m2 : :: 1940 Age: 80 yrs BP: 142/90 mmHg: :Reason For Study: NONRHEUMATIC MITRAL INSUFFICIENCY : :Ordering Physician: AMARJIT, : :MAURO Performed By: Samara Fong : :Referring: MAURO OCASIO : + + Interpretation Summary The left ventricle is normal in size and wall thickness. The ejection fraction is estimated to be 45-50%. Left ventricular systolic function has mildly improved compared to the previous exam. The right ventricle is normal in size and function. There is moderate mitral regurgitation. Compared to the prior echo study, there has been no change in the severity of mitral regurgitation. There is mild to moderate aortic regurgitation. Compared to the prior echo study, there has been an increase in the severity of aortic regurgitation. There is mild to moderate tricuspid regurgitation. Compared to the prior echo exam, there has been no change in TR severity. The right ventricular systolic pressure is estimated to be at least 35 mmHg based on an estimated right atrial pressure of 3 mm Hg. 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 This is unchanged compared to the previous study. Procedure: A two-dimensional transthoracic echocardiogram with color flow and Doppler was performed. The study quality was technically adequate. Comparison is made with the echocardiogram of 07/19/2017. The heart rate ranged between 59-68 bpm during the study. The patient was in normal sinus rhythm during the exam. Left Ventricle: The left ventricle is normal in size and wall thickness. There is no thrombus. The ejection fraction is estimated to be 45-50%. Left ventricular systolic function has mildly improved compared to the previous exam. There is mild global hypokinesis of the left ventricle. MV E/A: 1.5 Med Peak E' Stevo: 7.6 cm/sec E/E' med: 9.4. Right Ventricle: The right ventricle is normal in size and function. Atria: The left atrium is moderately dilated. The left atrium has mildly decreased in size since the prior echo exam. The right atrium is mildly dilated. 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 Mitral Valve: The mitral valve leaflets appear mildly thickened, but open well. There is mild mitral annular calcification. There is moderate mitral regurgitation. Compared to the prior echo study, there has been no change in the severity of mitral regurgitation. Aortic Valve: The aortic valve opens well. The aortic valve is trileaflet. There is no aortic valve stenosis. There is mild to moderate aortic regurgitation. Compared to the prior echo study, there has been an increase in the severity of aortic regurgitation. Tricuspid Valve: The tricuspid valve leaflets are thin and pliable. There is mild to moderate tricuspid regurgitation. The right ventricular systolic pressure is estimated to be at least 35 mmHg based on an estimated right atrial pressure of 3 mm Hg. Compared to the prior echo exam, there has been no change in TR severity. Pulmonic Valve: The pulmonic valve is not well visualized. There is mild pulmonic regurgitation. Great Vessels: The aortic root is normal size. The ascending aorta is mild- moderately enlarged. This is unchanged compared to the previous study. The IVC is of normal diameter and collapses greater than 50% with a sniff. This suggests a low right atrial pressure of 3 mm Hg. Pericardium/ Pleura There is no pericardial effusion. There is no pleural effusion. MMode/2D Measurements & Calculations LVIDd: 5.1 cm LVOT diam: 2.1 cm LVIDs: 4.1 cm Ao root diam: 3.3 cm FS: 19.1 % asc Aorta Diam: 4.0 cm EPSS: 1.6 cm Ao Arch Diam (Prox Trans): 3.2 cm IVSd: 0.97 cm LVPWd: 0.91 cm LV thrasher. diameter/BSA (cm/m^2): 2.8 LV sys. diameter/BSA (cm/m^2): 2.3 LA A2 area: 22.5 cm2 RA long axis: 5.5 cm LA A4 area: 22.2 cm2 RA area: 20.0 cm2 LA length (vol): 5.1 cm RA vol: 61.6 ml LA vol: 82.4 ml RA : 33.9 ml/m2 LA vol index: 45.3 ml/m2 IVC diam: 1.3 cm RVD1 (basal): 3.0 cm TAPSE: 2.5 cm Doppler Measurements & Calculations Ao V2 max: 117.2 cm/sec LVOT Max Stevo: 96.5 cm/sec Ao V2 mean: 79.6 cm/sec LV V1 max P.7 mmHg Ao max P.5 mmHg LV V1 VTI: 19.9 cm Ao mean P.9 mmHg PONCE(I,D): 2.8 cm2 Ao V2 VTI: 24.9 cm PONCE(V,D): 2.9 cm2 sev ratio: 0.80 PONCE indexed to BSA (cm^2/m^2): 1.6 AI P1/2t: 578.0 msec AI dec slope: 185.5 cm/sec2 MV E max stevo: 71.6 cm/sec TR max stevo: 282.4 cm/sec MV A max stevo: 48.7 cm/sec TR max P.9 mmHg MV E/A: 1.5 PA pr(Accel): 24.2 mmHg Med Peak E' Stevo: 7.6 cm/sec E/E' med: 9.4 Lat Peak E' Stevo: 10.1 cm/sec E/E' lat: 7.1 E/e' average: 8.2 MV dec time: 0.16 sec SV(LVOT): 70.4 ml Reading Physician:03:43 PM
== END ==
PROVIDERS: PCP Family Medicine; Referring Provider Internal Medicine Cardiovascular Disease; Visit Provider Internal Medicine Cardiovascular Disease
DX: I08.3 Combined rheumatic disorders of mitral, aortic and tricuspid valves (principal); I77.89 Other specified disorders of arteries and arterioles
CPT/HCPCS: 93306

== ENCOUNTER → 2020-11-10 14:34 | Outpatient (CLI) | payer MEDICARE, OTHER, SELFPAY ==
--- NOTE | 2020-11-10 14:37 | DI.MRI.S_ITS ---
PROCEDURE: MR STROKE Pre- and post-contrast brain MRI, non-contrast brain MR angiogram, pre- and postcontrast neck MR angiogram INDICATIONS: right eye vision changes TECHNIQUE: Brain: Noncontrast axial T1 spin echo, axial T2 fast spin echo, sagittal and axial FLAIR, coronal T2 fast spin echo, axial gradient echo, axial diffusion and ADC through the brain. After the administration of contrast, axial 3D VIBE of the cranial vasculature and brain. Brain MRA: Non-contrast 3-D time of flight MR angiogram, with multiple qtoxmwn-pezeguawn-nxoryexlzf (MIP) reformats performed. Neck MRA: Axial and sagittal TruFISP through the neck. Coronal dynamic MR angiogram during administration of contrast in the arterial and venous phases, with 3-dimenstional yhukhft-orilukxfv-updrzyquzk (MIP) reformats constructed from subtraction images. COMPARISON: None. FINDINGS: Image quality: Excellent. BRAIN: CSF spaces: Ventricles are normal in size and shape. Basal cisterns are patent. No extra-axial fluid collections. Brain: No intracranial bleeds or mass effects. Mild diffuse cerebral volume loss. Mild degree of patchy high FLAIR signal within the periventricular and subcortical white matter, consistent with small vessel ischemic disease. Vila-white matter interface is normal. Diffusion weighted images show no acute ischemic insults. Brainstem appears normal. Normal intravascular flow voids are present. No abnormal intracranial enhancement. Skull and face: Calvarial marrow signal is normal. Orbits appear normal. Sinuses: Left maxillary sinus retention cyst. Small right maxillary sinus retention cyst. Sinuses and mastoids are otherwise clear. BRAIN MR ANGIOGRAM: Anterior circulation: Intracranial internal carotid arteries are normal in size and enhancement. The flow within the paired anterior cerebral arteries is normal and symmetric. The flow within the middle cerebral arteries is normal and symmetric. The anterior communicating artery is seen. No stenoses, occlusions, or aneurysms. Posterior circulation: The visualized portions of the vertebral arteries demonstrate normal caliber, and join to form a normal appearing basilar artery. The flow within the posterior cerebral arteries is normal and symmetric. No stenoses, occlusions, or aneurysms. NECK MR ANGIOGRAM: Thoracic aortic arch is widely patent. Innominate, right subclavian, and right vertebral arteries are patent. Right common carotid artery is tortuous and patent. Right internal and external carotid arteries are patent. Left common carotid artery is tortuous and patent. Left internal and external carotid arteries are patent. Left vertebral artery arises directly from the thoracic aortic arch, and is patent. Left subclavian artery is patent. [employer] T2 imaging through the neck is grossly unremarkable. IMPRESSION: BRAIN MRI: 1. Volume loss and small vessel ischemic disease. No acute process. No recent infarct. BRAIN MR ANGIOGRAM: Negative cerebral MR angiography. NECK MR ANGIOGRAM: 1. No internal carotid artery stenosis bilaterally. 2. Patent bilateral vertebral arteries. Dictated by: Neo Bragg M.D. on 11/10/2020 at 15:43 Approved by: Neo Bragg M.D. on 11/10/2020 at 15:47
--- NOTE | 2020-11-10 14:37 | DI.US.S_ITS ---
PROCEDURE: US CAROTID DOPPLER BI INDICATIONS: RIGHT VISION CHANGES TECHNIQUE: Color and pulse Doppler interrogation was performed of both carotid systems, with image documentation and velocity measurements. COMPARISON: None. FINDINGS: Stenosis calculations are based on SRU (Society of Radiologists in Ultrasound) criteria. Right side: Brachial blood pressure: 120/74 mm Hg. Common carotid artery peak systolic velocity: 87 cm/sec. Internal carotid artery peak systolic velocity: 49 cm/sec. Internal carotid artery end diastolic velocity: 15 cm/sec. External carotid artery peak systolic velocity: 0.6 cm/sec. ICA/CCA peak systolic ratio: 0.6 Vila scale imaging description: Minimal intimal wall thickening. Percent internal carotid artery stenosis: Less than 50% . Vertebral artery: Flow direction is antegrade. Left side: Brachial blood pressure: 112/58 mm Hg. Common carotid artery peak systolic velocity: 67 cm/sec. Internal carotid artery peak systolic velocity: 45 cm/sec. Internal carotid artery end diastolic velocity: 19 cm/sec. External carotid artery peak systolic velocity: 50 cm/sec. ICA/CCA peak systolic ratio: 0.7 . Vila scale imaging description: Minimal scattered plaque. Percent internal carotid artery stenosis: Less than 50% . Vertebral artery: Flow direction is antegrade. IMPRESSION: Less than 50% bilateral internal carotid artery stenosis. Dictated by: Wali Mendoza [facility] Interpreted: Chepe Colbert MD on 11/10/2020 at 16:03 Transcribed by: CAYDEN on 11/10/2020 at 16:04 Approved by: Chepe Colbert M.D. on 11/10/2020 at 16:36
== END ==
PROVIDERS: PCP Family Medicine; Referring Provider Family Medicine; Visit Provider Family Medicine
DX: H53.9 Unspecified visual disturbance (principal); I77.1 Stricture of artery; Z71.1 Person with feared health complaint in whom no diagnosis is made
CPT/HCPCS: 70548; 70553; 93880

== ENCOUNTER → 2020-11-16 14:01 | Outpatient (CLI) | payer MEDICARE, OTHER, SELFPAY ==
[2020-11-16 16:34] LABS: COVID19 -Nasal RAPID Negative (Negative)
== END ==
PROVIDERS: PCP Family Medicine; Visit Provider Physician Assistant
DX: Z01.812 Encounter for preprocedural laboratory examination (principal); Z20.822 Contact with and (suspected) exposure to COVID-19
CPT/HCPCS: 87635; C9803

== ENCOUNTER → 2021-02-17 09:43 | Outpatient (CLI) | payer MEDICARE, OTHER, SELFPAY ==
--- NOTE | 2021-02-17 09:45 | DI.US.S_ITS ---
PROCEDURE: US RENAL COMPLETE INDICATIONS: Right renal mass follow-up. Other specified disorders of kidney and ureter TECHNIQUE: Real-time scanning was performed of the kidneys and bladder, with image documentation. COMPARISON: [facility], CT, CT ABDOMEN WO/W CON, 02/17/2020, 11:13. [facility], US, US RENAL COMPLETE, 08/07/2018, 10:30. FINDINGS: Kidneys: Right kidney measures 10.2 cm in length. The renal cortical thickness is 0.63 cm. 4.7 mm echogenic focus in the cortex, which may reflect an angiomyolipoma. An echogenic mass is seen in the lower pole, measuring 2.8 by 2.6 x 2.6 cm, previously demonstrated to represent an angiomyolipoma. Left kidney measures 10.8 cm in length. The renal cortical thickness is 9.7 mm. Hypoechoic lesion in the upper pole, measuring up to 3.2 cm, compatible with a cyst. No hydronephrosis or nephrolithiasis. Bladder: Pre-void bladder volume is 224.1 mL. Post-void residual is 1.3 mL. Pre-void images demonstrate no intraluminal masses or stones. On pre-void images, no ureteral jets are noted with color Doppler interrogation. (Of note, ureteral jets may not be detectable in up to 25% of cases due to insufficient differences in specific gravity between ureteral and bladder urine). Miscellaneous: No free pelvic fluid. IMPRESSION: 1. Redemonstrated echogenic masses in the right kidney, compatible with angiomyolipomas. 2. No acute sonographic abnormality. Dictated by: Von Sherwood M.D. on 02/17/2021 at 10:51 Approved by: Von Sherwood M.D. on 02/17/2021 at 11:01
== END ==
PROVIDERS: PCP Family Medicine; Referring Provider Urology; Visit Provider Urology
DX: N28.89 Other specified disorders of kidney and ureter (principal)
CPT/HCPCS: 76770

== ENCOUNTER → 2021-05-25 09:43 | Outpatient (CLI) | payer MEDICARE, OTHER, SELFPAY ==
--- NOTE | 2021-05-25 | DI.RAD.S_ITS ---
PROCEDURE: XR RIBS RT MIN 3V W CXR 1V INDICATIONS: RIGHT RIB PAIN TECHNIQUE: 2 views of the right ribs were acquired, along with a single view chest. COMPARISON: None. FINDINGS: Surgical changes and devices: None. Bones and chest wall: No fractures or dislocations. No suspicious bony lesions. Overlying soft tissues appear unremarkable. Lungs and pleura: No pleural effusions or pneumothorax. Lungs appear clear. Mediastinum: Mediastinal contours appear normal. Enlargement of the cardiac silhouette. IMPRESSION: No acute abnormality. Dictated by: Von Sherwood M.D. on 05/25/2021 at 10:58 Approved by: Von Sherwood M.D. on 05/25/2021 at 10:59
== END ==
PROVIDERS: PCP Family Medicine; Referring Provider Registered Nurse; Visit Provider Registered Nurse
DX: R07.81 Pleurodynia (principal)
CPT/HCPCS: 71101

== ENCOUNTER → 2021-05-26 13:41 | Outpatient (CLI) | payer MEDICARE, OTHER, SELFPAY ==
[2021-05-26 15:00] LABS: Add Manual Diff / Slide Review NO; Basophils Absolute Auto 0 /uL (0-100); Basophils Percent Auto 1.1 % (0-2); Eosinophils Absolute Auto 200 /uL (0-450); Hematocrit 42.1 % (36-46); Hemoglobin 14.1 g/dL (12.0-16.0); Lymphocytes Absolute Auto 1200 /uL (1100-4500); Lymphocytes Percent Auto 26.6 % (25-40); Mean Corpuscular HGB Conc 33.4 % (30-36); Mean Corpuscular Hemoglobin 30.6 PG (26-34); Mean Corpuscular Volume 91.4 fL (80-100); Monocytes Absolute Auto 300 /uL (0-900); Monocytes Percent Auto 7.5 % (3-14); Neutrophils Absolute Auto 2800 /uL (1500-7000); Neutrophils Percent Auto 60.8 % (50-75); Platelet Count 185 X10^3/uL (150-400); Red Cell Distribution Width 13.5 % (11.6-14.8); White Blood Cell Count 4.5 X10^3/uL (4.5-11.0)
[2021-05-26 15:16] LABS: Alanine Aminotransferase 23 IU/L (<35); Albumin 4.4 g/dL (3.5-5.0); Albumin Globulin Ratio 1.6 (1.0-2.8); Alkaline Phosphatase 90 U/L (38-126); Aspartate Aminotransferase 31 IU/L (14-36); BUN Creatinine Ratio 25.9 (6-22); Bilirubin Total 0.7 mg/dL (0.2-1.3); Blood Urea Nitrogen 30 mg/dL (7-17); Calcium 9.7 mg/dL (8.4-10.2); Carbon Dioxide 32 mmol/L (22-32); Chloride 103 mmol/L (98-107); Estimated Glomerular Filt Rate 44.7 mL/min (>60); Globulin 2.7 g/dL (1.7-4.1); Glucose 85 mg/dL (80-110); HEMOLYSIS < 15 (0-50); Lipase 75 U/L (23-300); Potassium 5.1 mmol/L (3.4-5.1); Sodium 140 mmol/L (137-145); Total Protein 7.1 g/dL (6.3-8.2)
== END ==
PROVIDERS: PCP Family Medicine; Referring Provider Surgery; Visit Provider Surgery
DX: K80.21 Calculus of gallbladder without cholecystitis with obstruction (principal); K59.00 Constipation, unspecified; R07.81 Pleurodynia; K80.50 Calculus of bile duct without cholangitis or cholecystitis without obstruction; R22.2 Localized swelling, mass and lump, trunk
CPT/HCPCS: 36415; 80053; 83690; 85025; 99213

== ENCOUNTER → 2021-08-09 09:55 | Outpatient (CLI) | payer MEDICARE, OTHER, SELFPAY ==
[2021-08-09 13:45] LABS: COVID19 -Nasal RAPID Negative (Negative)
== END ==
PROVIDERS: PCP Family Medicine; Visit Provider Surgery
DX: Z01.812 Encounter for preprocedural laboratory examination (principal); Z20.822 Contact with and (suspected) exposure to COVID-19
CPT/HCPCS: 87635; C9803

== ENCOUNTER 2021-08-10 10:27 | Day surgery (SDC) | payer MEDICARE, OTHER, SELFPAY ==
[2021-08-04 12:12] VITALS: BMI 25.4
[2021-08-10] VITALS (8 sets, daily range): BP systolic 127–150; BP diastolic 68–97; PULSE 73–86; RESP 12–16; TEMP 36.4–37.3; O2SAT 93–99; BMI 25.4
--- NOTE | 2021-08-10 | PATH_ITS ---
[facility] Accession Number: [id number] . 01 Material submitted: . PART A: gallbladder - GALLBLADDER PART B: back - RIGHT BACK MASS . 01 Diagnosis: A. Gallbladder, Cholecystectomy: Chronic cholecystitis with cholelithiasis. . B. Soft Tissue, Right Back, Excision: Mature adipose tissue, consistent with lipoma. MRV 08/16/2021 1206 Local . 01 Electronically signed: . Diana Lee MD, Pathologist NPI- [id number] . 01 Gross description: . A. The specimen is received in formalin, labeled gallbladder and consists of an intact gallbladder measuring 8.1 x 3.5 x 3.4 cm, with an average wall thickness of 0.2 cm. The hepatic bed (inked blue) and serosal surfaces are grossly unremarkable. The cystic duct (0.3 cm in diameter) is patent. Opening the specimen reveals an aggregate of yellow calculi measuring 3.5 x 2.9 x 1.4 cm in aggregate. The specimen consists of a moderate amount of viscous bile, and the mucosa is moderately trabeculated. The specimen is representatively submitted as follows: . A1: Cystic duct margin en face, representative phlebotomy services sections of neck, body, and fundus. . B. The specimen is received in formalin, labeled right back mass and consists of an unoriented and partially encapsulated excision of adipose tissue measuring 5.0 x 2.9 x 1.0 cm. The external surface is entirely inked blue. Sectioning reveals pale yellow fatty cut surfaces. The specimen is representatively submitted in cassettes B1-B5. ([id number]) /MRV 08/11/2021 1324 Local . 01 Pathologist provided ICD-10: K80.10, D17.9 . 01 CPT . 671556, 746030 Specimen Comment: A courtesy copy of this report has been sent to [phone] Performed at: 01 [facility] [address] [place] [address] [id number] MD Wesly Viveros MD Phone: [phone]
[2021-08-10] MEDS: LACTATED RINGERS 1,000 ML 84 ML IV (10:52)
--- NOTE | 2021-08-10 11:11 | P.HP_ITS ---
History of Present Illness History of Present Illness Date Patient Seen: 08/10/21 Time Patient Seen: 11:11 [address]: [facility] Narrative: Ambrose has gallstones and a right back lipoma. See the office note from May for details. Patient History Medical History Allergic reaction Arthritis Cardiomyopathy Chickenpox Constipation GERD (gastroesophageal reflux disease) Hemorrhoids History of tumor Hyperlipidemia Hypertension Inguinal hernia of left side without obstruction or gangrene (05/29/17) Irregular heartbeat Measles Nontoxic multinodular goiter Osteopenia PFO (patent foramen ovale) Pneumonia Rib pain on right side Sinus drainage Tinnitus UTI (urinary tract infection) Surgical History Anesthesia complication H/O left inguinal hernia repair History of bilateral tubal ligation History of cataract removal with insertion of prosthetic lens Status post breast biopsy Status post colonoscopy Status post tubal ligation Family & Social History Family History Mother History of colon cancer Brother No problems noted. Brother No problems noted. Father No problems noted. Grandmother No problems noted. Grandmother No problems noted. Social History: household members spouse Tobacco & Substance use: Smoking Status Never smoker alcohol intake current alcohol intake frequency a few times a month Substance Use Type does not use Meds Home Medications and Allergies Home Medications Medication Instructions Recorded Confirmed Type magnesium oxide 500 mg tablet 250 mg PO Q DAY #0 07/04/16 08/10/21 History cholecalciferol (vitamin D3) 25 1,000 unit PO DAILY 09/21/17 08/10/21 History mcg (1,000 unit) capsule (Vitamin D3) lisinopril 5 mg tablet 5 mg PO DAILY 10/25/19 08/10/21 History metoprolol succinate 100 mg 100 mg PO BID 10/25/19 08/10/21 History tablet,extended release 24 hr melatonin 3 mg capsule 3 mg PO BEDTIME PRN 04/20/20 08/10/21 History omeprazole 40 mg capsule,delayed 40 mg PO DAILY #90 cap 09/16/20 08/10/21 Rx release aspirin 81 mg tablet,delayed 81 mg PO DAILY 11/14/20 08/10/21 History release Miralax 1 pkg DAILY 08/10/21 08/10/21 History Allergies Allergy/AdvReac Type Severity Reaction Status Date / Time acyclovir [ACYCLOVIR] Allergy Severe Irreg Verified 08/10/21 10:39 heart rate fentanyl Allergy Severe NAUSEA AND Verified 08/10/21 10:39 EMESIS Sulfa (Sulfonamide Allergy Severe Rash, fever Verified 08/10/21 10:39 Antibiotics) [SULFA (SULFONAMIDE ANTIBIOTICS)] trospium Allergy Severe ED, hives, Verified 08/10/21 10:39 facial and LE edema cephalexin [CEPHALEXIN] Allergy Mild Rash Verified 08/10/21 10:39 clindamycin Allergy Mild Lip Verified 08/10/21 10:39 swelling amoxicillin Allergy Rash Verified 08/10/21 10:39 Exam Vital Signs (past 8 hours): - 08/10/21 10:48 Temperature 97.5 F L Pulse Rate 76 Respiratory Rate 12 Blood Pressure 150/97 H Pulse Oximetry 99 Oxygen Delivery Method Room Air Narrative Exam Narrative: Abdomen soft 4 cm right back mobile soft tissue mass near the right scapula Assessment & Plan Assessment and plan (1) Mass on back: Status: Acute Plan Gallstones and right back mass suspected to be a lipoma. Risks and benefits of laparoscopic cholecystectomy and excisional biopsy reviewed and she would like to proceed. COVID-19 COVID-19 status: Negative Result date/Date tested (Pos, Neg/Pending): 08/09/21 Time Spent With Patient Critical Care time: I spent a total of [] minutes of critical care time on this patient's care today; this time is exclusive of procedural time.
[2021-08-10] MEDS: CEFAZOLIN 2 GM/20 ML SYRINGE IV (11:35)
--- NOTE | 2021-08-10 11:49 | SUR.OPER ---
Supine on padded OR bed, head on pillow, safety belt at thigh, left arm Right arm secured on padded arm board <90 degrees abduction. Legs uncrossed. Padded footboard in place. Tape over blanket to secure lower legs.
--- NOTE | 2021-08-10 12:40 | SUR.OPER ---
Supine on padded OR bed, head on pillow, safety belt at thigh, bilateral arms secured on padded arm board <90 degrees abduction. Legs uncrossed. Padded footboard in place. Tape over blanket to secure lower legs. Gel pad under heels. Intraop change of positioning to left lateral for excision of right back mass. Axilla roll under upper chest, gel pad under left leg. large hip drill bit sharpener to posterior hip area. patient secured with safety belt and tape. pillow between legs and arms.
[2021-08-10] MEDS: LIDOCAINE 1% W/EPI 20 ML INJ (12:47)
[2021-08-10] MEDS: BUPIVACAINE 0.25% (PF) VIAL 30 ML INJ (12:51)
--- NOTE | 2021-08-10 12:57 | PM.OP.1 ---
Operative Date/Time/Diagnoses Date of procedure: 08/10/21 Time of procedure: 12:58 Pre-op diagnosis: Gallstones and right back mass Post-op diagnosis: same Procedure & Clinicians Procedure: Laparoscopic cholecystectomy and excisional biopsy of right back mass Same procedure as scheduled: Yes Surgeon: Fidencio Paul Anesthesia Type: General Operative Notes Procedure in detail: The patient was given preoperative antibiotic. The patient was brought to the operating room, placed on the table in the supine position. General endotracheal anesthesia was induced. The abdomen was prepped and draped. A time-out was performed. We made a 1 cm infraumbilical incision. We dissected down to the base of the umbilical stalk using cautery. We grasped the umbilical stalk with a Jasmyn clamp to elevate the abdominal wall. We scored the fascia in the midline with cautery 1 cm. We pierced the peritoneum with a Peon clamp. The Be port was placed and the abdomen was insufflated to 15 mmHg. A 5 mm 30 degree laparoscopic was inserted. There was no evidence of any injury from the entry. Next, we placed 5 mm ports in the subxiphoid position and right upper quadrant at the midclavicular line and anterior axillary line. Patient was then positioned in reverse Trendelenburg and the table was tilted to the left. The gallbladder was grasped at the dome and retracted cephalad. We then dissected the cystic structures with a combination of hook cautery and blunt dissection. We obtained a critical view. We placed hemoclips on the cystic duct and artery and divided the cystic duct and artery sharply between the clips. The gallbladder was then dissected off the liver and placed in a specimen retrieval bag. We irrigated the right upper quadrant and all the aspirate returned clear. We then removed the 5 mm ports under direct vision we removed the Be port. We then injected some local into the fascia and closed the fascia with 2 interrupted 0 Vicryl sutures. The skin incisions were closed with 4 Monocryl and Steri-Strips were applied. Band-Aids were applied over the Steri-Strips. Next we repositioned the patient in the left lateral decubitus position with right side up. The back was prepped and draped. A 5 cm incision was made over the palpable back mass. Dissection through the subcutaneous adipose tissue demonstrated a 5-7 cm lipomatous lesion. The lesion was completely excised. The lesion extended down to the muscle fascia. We injected Marcaine into the muscle fascia and subcutaneous tissue around the incision. The wound was closed in layers using multiple interrupted 3-0 dermal sutures followed by a running 4 Monocryl subcuticular stitch. EBL: 10 mL Specimen: Gallbladder and back mass Post-operative Condition: stable Disposition: PACU
[2021-08-10] MEDS: HYDROCODONE/ACET 5/325 TABLET 1 TAB PO (13:20)
== END 2021-08-10 14:10 | disposition home or self-care (01) ==
PROVIDERS: PCP Family Medicine; Referring Provider Surgery; Visit Provider Surgery
PROC: 0FT44ZZ Resection of Gallbladder, Percutaneous Endoscopic Approach (ICD-10-PCS; CPT 47562; principal; 2021-08-10 11:45)
PROC: (CPT 47562; 2021-08-10 11:45)
DX: K80.10 Calculus of gallbladder with chronic cholecystitis without obstruction (principal); K21.9 Gastro-esophageal reflux disease without esophagitis; I10 Essential (primary) hypertension; E78.5 Hyperlipidemia, unspecified; D17.1 Benign lipomatous neoplasm of skin and subcutaneous tissue of trunk
CPT/HCPCS: 47562; 21931; J0690; J1100; J1885; J2405; J2704; J3010

== ENCOUNTER → 2021-10-06 10:44 | Outpatient (CLI) | payer MEDICARE, OTHER, SELFPAY ==
--- NOTE | 2021-10-06 | DI.US.S_ITS ---
PROCEDURE: US THYROID INDICATIONS: NONTOXIC GOITER TECHNIQUE: Real-time scanning was performed of the thyroid gland, with image documentation. COMPARISON: None. FINDINGS: Right: Thyroid lobe measures 5.5 x 2.3 x 1.8 cm, and demonstrates multiple nodules Left: Thyroid lobe measures 5.2 x 1.8 x 2.1 cm, and demonstrates multiple nodules Nodule number: 1 Location: Right mid thyroid Size: 0.6 x 0.6 x 0.4 cm. Composition: Solid Echogenicity: Hypoechoic Shape: wider than tall. Margins: Smooth Echogenic foci: 0 Total points: 4 ACR TI-RADS category: 4 Recommendations: No follow-up necessary based on size. Nodule number: 2 Location: Right inferior thyroid Size: 1.2 x 1.1 x 0.9 cm. Composition: Solid Echogenicity: Hypoechoic Shape: wider than tall. Margins: Smooth Echogenic foci: 0 Total points: 4 ACR TI-RADS category: 4 Recommendations: Follow-up imaging at 1, 2, 3, and 5 years. Nodule number: 3 Location: Left superior thyroid Size: 0.6 x 0.5 x 0.4 cm. Composition: Solid Echogenicity: Hypoechoic Shape: wider than tall. Margins: Smooth Echogenic foci: 0 Total points: 4 ACR TI-RADS category: 4 Recommendations: No follow-up necessary based on size Nodule number: 4 Location: Left mid thyroid Size: 2.2 x 0.9 x 0.9 cm. Composition: Solid Echogenicity: Isoechoic Shape: wider than tall. Margins: Ill-defined Echogenic foci: 0 Total points: 3 ACR TI-RADS category: 3 Recommendations: Follow-up imaging at 1, 3, and 5 years Nodule number: 5 Location: Left inferior thyroid Size: 0.6 x 0.6 x 0.5 cm. Composition: Predominantly cystic Echogenicity: Anechoic Shape: wider than tall. Margins: Smooth Echogenic foci: 0 Total points: 0 ACR TI-RADS category: 1 Nodule number: 6 Location: Isthmus Size: 2.2 x 1.8 x 1.2 cm. Composition: Solid Echogenicity: Isoechoic Shape: wider than tall. Margins: Lobulated Echogenic foci: Multiple macrocalcifications Total points: 6 ACR TI-RADS category: 5 Recommendations: By report, this nodule was previously fine needle aspirated and was benign. IMPRESSION: Multiple bilateral thyroid nodules with follow-up imaging as recommended above. Dictated by: Neo Bragg M.D. on 10/07/2021 at 15:32 Approved by: Neo Bragg M.D. on 10/07/2021 at 15:37
== END ==
PROVIDERS: PCP Family Medicine; Referring Provider Student in an Organized Health Care Education/Training Program; Visit Provider Student in an Organized Health Care Education/Training Program
DX: E04.2 Nontoxic multinodular goiter (principal)
CPT/HCPCS: 76536

== ENCOUNTER 2022-02-19 15:58 | Emergency (ER) | payer MEDICARE, OTHER, SELFPAY ==
[2022-02-19] VITALS (22 sets, daily range): BP systolic 128–163; BP diastolic 59–82; PULSE 68–83; RESP 18–26; TEMP 36.6; O2SAT 90–96; BMI 25.0
--- NOTE | 2022-02-19 16:08 | DI.RAD.S_ITS ---
PROCEDURE: XR CHEST 1V INDICATIONS: chest pain TECHNIQUE: One view of the chest was acquired. COMPARISON: None. FINDINGS: Heart size is enlarged. Mild vascular congestion present. There is obscuration of left hemidiaphragm with a blunting of left costophrenic angle. Minimal right basilar atelectasis present as well. Generalized decrease in osseous mineralization noted. IMPRESSION: Cardiomegaly, mild vascular congestion left pleural effusion with atelectasis and or infiltrate Approved by: Jared Ramos M.D. on 02/19/2022 at 16:34
[2022-02-19 16:27] LABS: Add Manual Diff / Slide Review NO; Basophils Absolute Auto 100 /uL (0-100); Basophils Percent Auto 1.5 % (0-2); Eosinophils Absolute Auto 200 /uL (0-450); Eosinophils Percent Auto 3.9 % (2-4); Hemoglobin 13.8 g/dL (12.0-16.0); Lymphocytes Absolute Auto 1200 /uL (1100-4500); Lymphocytes Percent Auto 23.6 % (25-40); Mean Corpuscular HGB Conc 33.7 % (30-36); Mean Corpuscular Hemoglobin 30.9 PG (26-34); Mean Corpuscular Volume 91.9 fL (80-100); Monocytes Absolute Auto 400 /uL (0-900); Neutrophils Absolute Auto 3100 /uL (1500-7000); Platelet Count 172 X10^3/uL (150-400); Red Blood Cell Count 4.46 X10^6/uL (4.0-5.2); Red Cell Distribution Width 13.9 % (11.6-14.8)
[2022-02-19] MEDS: SODIUM CHLORIDE 0.9% 1,000 ML 150 ML IV (16:58)
--- NOTE | 2022-02-19 17:02 | ED.CHESTPAIN ---
HPI - Chest Pain General Chief Complaint: Chest Pain Stated Complaint: SOB, Weakness Time Seen by Provider: 02/19/22 16:01 Source: EMS Mode of arrival: EMS Limitations: no limitations History of Present Illness HPI narrative: Patient is a 81-year-old female history of PVCs, hypertension presenting today with increasing shortness of breath. She states that she has some dyspnea alcohol sleeping she has to roll over into a certain position but not necessarily recline. She has shortness of breath with exertion she says it gets better by lunch time. No fever chills or cough. She has no real chest pain or palpitations. She states her heart rate is quite variable anywhere from 30-68 EMS reports that her heart rate was in the 40s with frequent PVCs rhythm it is currently in the 70s. There was report per EMS from her certified first assistant that she has an EF of 35-40% the last echo we have here is from 2020 shows EF of 45-50%. It does not appear that she is on Lasix. She has not traveled anywhere she has no prior history of DVT. She denies fever chills or cough. No nausea vomiting peripheral edema. Overall feeling better. Related Data Home Medications Medication Instructions Recorded Confirmed magnesium oxide 500 mg tablet 250 mg PO Q DAY ##0 07/04/16 08/25/21 cholecalciferol (vitamin D3) 25 1,000 unit PO DAILY 09/21/17 08/25/21 mcg (1,000 unit) capsule (Vitamin D3) lisinopril 5 mg tablet 5 mg PO DAILY 10/25/19 08/25/21 metoprolol succinate 100 mg 100 mg PO BID 10/25/19 08/25/21 tablet,extended release 24 hr melatonin 3 mg capsule 3 mg PO BEDTIME PRN Sleep 04/20/20 08/25/21 aspirin 81 mg tablet,delayed 81 mg PO DAILY 11/14/20 08/25/21 release Miralax 1 pkg DAILY 08/10/21 08/25/21 Previous Rx's Medication Instructions Recorded omeprazole 40 mg capsule,delayed See Rx Instructions .Route 02/02/22 release .COMPLEX #30 caps furosemide 20 mg tablet (Lasix) 20 mg PO DAILY #3 tabs 02/19/22 Allergies Allergy/AdvReac Type Severity Reaction Status Date / Time acyclovir [ACYCLOVIR] Allergy Severe Irreg Verified 08/25/21 10:59 heart rate fentanyl Allergy Severe NAUSEA AND Verified 08/25/21 10:59 EMESIS Sulfa (Sulfonamide Allergy Severe Rash, fever Verified 08/25/21 10:59 Antibiotics) [SULFA (SULFONAMIDE ANTIBIOTICS)] trospium Allergy Severe ED, hives, Verified 08/25/21 10:59 facial and LE edema cephalexin [CEPHALEXIN] Allergy Mild Rash Verified 08/25/21 10:59 clindamycin Allergy Mild Lip Verified 08/25/21 10:59 swelling amoxicillin Allergy Rash Verified 08/25/21 10:59 Review of Systems Review of Systems Narrative: GENERAL: Denies chills, fatigue, malaise, fever, sweats, travel HEENT: Denies sinus pain, ear pain, sore throat, difficulty swallowing, neck pain RESPIRATORY: See HPI CARDIOVASCULAR: Denies chest pain, palpitations, orthopnea, edema GASTROINTESTINAL: Denies nausea, vomiting, abdominal pain, diarrhea, constipation, melena. : Denies dysuria, frequency, incontinence, hematuria, urinary retention, flank pain. MUSCULOSKELETAL: Denies weakness, joint pain, or bony pain SKIN: No rash, no erythema, no pruritus NEUROLOGIC: Denies weakness, dizziness, headache, numbness, change in speech, confusion PSYCHIATRIC: No concerning psychosocial issues. 12 point review of systems is negative except for those stated above and HPI Patient History Medical History Allergic reaction Arthritis Cardiomyopathy Chickenpox Constipation GERD (gastroesophageal reflux disease) Hemorrhoids History of tumor Hyperlipidemia Hypertension Inguinal hernia of left side without obstruction or gangrene (05/29/17) Irregular heartbeat Measles Nontoxic multinodular goiter Osteopenia PFO (patent foramen ovale) Pneumonia Rib pain on right side Sinus drainage Tinnitus UTI (urinary tract infection) Surgical History Anesthesia complication H/O left inguinal hernia repair History of bilateral tubal ligation History of cataract removal with insertion of prosthetic lens Status post breast biopsy Status post colonoscopy Status post tubal ligation Family History Mother History of colon cancer Brother No problems noted. Brother No problems noted. Father No problems noted. Grandmother No problems noted. Grandmother No problems noted. Social History household members: spouse Smoking Status: Never smoker alcohol intake: current Smoking Status: Never smoker alcohol intake frequency: a few times a month Substance Use Type: does not use Exam Initial Vital Signs Initial Vital Signs: Vital Signs Temperature 97.9 F 02/19/22 16:05 Pulse Rate 71 02/19/22 16:05 Respiratory Rate 18 02/19/22 16:05 Blood Pressure 163/82 H 02/19/22 16:05 Pulse Oximetry 93 02/19/22 16:05 Oxygen Delivery Method 02/19/22 16:05 GENERAL: Alert pleasant 81-year-old female and in no acute distress. HEENT: Head atraumatic,EOMI, pupils reactive, face symmetric, moist mucous membranes CARDIOVASCULAR: Regular rate and rhythm without murmurs, rubs or gallops. RESPIRATORY: Breath sounds equal bilaterally, no wheezes rales or rhonchi. ABDOMEN: Soft, nontender. Normoactive bowel sounds all 4 quadrants. No guarding or rebound. EXTREMITIES: Normal range of motion, no clubbing or edema. Neurovascularly intact NEUROLOGICAL: Alert and oriented x4. SKIN: Warm, dry, no laceration, no petechiae, no rashes or lesions. Course Orders Ordered: Discontinued Medications Furosemide (Furosemide 40 Mg/4 Ml Vial) 40 mg IV NOW ONE Stop: 02/19/22 17:55 Last Admin: 02/19/22 18:08 Dose: 40 mg Documented By: ONEIDA Sodium Chloride (Normal Saline 0.9%) 1,000 mls @ 150 mls/hr IV CONT MYRANDA Last Infusion: 02/19/22 20:44 Dose: 0 mls/hr Documented By: Infusion: 02/19/22 17:28 Dose: 0 mls/hr Documented By: Admin: 02/19/22 16:58 Dose: 150 mls/hr Documented By: ONEIDA Vital Signs Vital signs: Vital Signs - 8 hr 02/19/22 18:45 02/19/22 18:45 02/19/22 19:00 Pulse Rate 70 69 Respiratory Rate 21 21 Blood Pressure 134/62 Pulse Oximetry 94 92 Oxygen Delivery Method 02/19/22 19:01 02/19/22 19:01 02/19/22 19:15 Pulse Rate 73 Respiratory Rate 23 Blood Pressure 140/61 137/65 Pulse Oximetry 93 Oxygen Delivery Method Room Air 02/19/22 19:15 02/19/22 19:30 02/19/22 19:30 Pulse Rate 71 75 Respiratory Rate 21 19 Blood Pressure 128/61 Pulse Oximetry 93 93 Oxygen Delivery Method Room Air Room Air 02/19/22 19:45 02/19/22 19:45 02/19/22 19:54 Pulse Rate 73 80 Respiratory Rate 18 26 H Blood Pressure 144/66 H Pulse Oximetry 92 92 Oxygen Delivery Method Room Air Room Air 02/19/22 19:54 02/19/22 20:00 02/19/22 20:01 Pulse Rate 69 71 Respiratory Rate 22 21 Blood Pressure 141/66 H Pulse Oximetry 95 93 Oxygen Delivery Method Room Air Room Air 02/19/22 20:01 02/19/22 20:15 02/19/22 20:15 Pulse Rate 70 Respiratory Rate 21 Blood Pressure 146/68 H 136/64 Pulse Oximetry Oxygen Delivery Method 02/19/22 20:30 02/19/22 20:30 Pulse Rate 77 Respiratory Rate 24 Blood Pressure 132/60 Pulse Oximetry 94 Oxygen Delivery Method Room Air MDM - Chest Pain Lab Data Result diagrams: 02/19/22 16:17 02/19/22 16:17 Labs: Lab Results 02/19/22 02/19/22 02/19/22 Range/Units 16:17 16:17 16:17 WBC 5.0 (4.5-11.0) X10^3/uL RBC 4.46 (4.0-5.2) X10^6/uL Hgb 13.8 (12.0-16.0) g/dL Hct 41.0 (36-46) % MCV 91.9 (80-100) fL MCH 30.9 (26-34) PG MCHC 33.7 (30-36) % RDW 13.9 (11.6-14.8) % Plt Count 172 (150-400) X10^3/uL Neut % (Auto) 63.0 (50-75) % Lymph % (Auto) 23.6 L (25-40) % Payette % (Auto) 8.0 (3-14) % Eos % (Auto) 3.9 (2-4) % Baso % (Auto) 1.5 (0-2) % Neut # (Auto) 3100 (1893-6797) /uL Lymph # (Auto) 1200 (0009-7394) /uL [place] # (Auto) 400 (0-900) /uL Eos # (Auto) 200 (0-450) /uL Baso # (Auto) 100 (0-100) /uL PT 12.5 (10.1-12.7) SECONDS INR 1.1 (0.9-1.3) APTT 33 (26-36) SECONDS Sodium 141 (137-145) mmol/L Potassium 4.5 (3.4-5.1) mmol/L Chloride 109 H (98-107) mmol/L Carbon Dioxide 22 (22-32) mmol/L BUN 24 H (7-17) mg/dL Creatinine 1.09 H (0.52-1.04) mg/dL Estimated GFR 51 L (>60) mL/min BUN/Creatinine Ratio 22.0 (6-22) Glucose 95 (80-110) mg/dL Calcium 8.6 (8.4-10.2) mg/dL Total Bilirubin 1.0 (0.2-1.3) mg/dL AST 29 (14-36) IU/L ALT 33 (<35) IU/L Alkaline Phosphatase 103 (38-126) U/L Total Creatine Kinase 73 (30-135) U/L CK-MB (CK-2) TNP CK-MB (CK-2) Rel Index TNP Troponin I < 0.012 (0.01-0.034) ng/mL NT-Pro-B Natriuret Pep 5190 H (<450) pg/mL Total Protein 7.0 (6.3-8.2) g/dL Albumin 4.0 (3.5-5.0) g/dL Globulin 3.0 (1.7-4.1) g/dL Albumin/Globulin Ratio 1.3 (1.0-2.8) Lipase 51 (23-300) U/L Procalcitonin 0.04 (<0.5) ng/mL SARS-CoV-2 (PCR) (Negative) Influenza A (RT-PCR) (NEGATIVE) Influenza B (RT-PCR) (NEGATIVE) RSV (PCR) (Negative) 11/05/22 11/05/22 Range/Units 17:26 19:22 WBC (4.5-11.0) X10^3/uL RBC (4.0-5.2) X10^6/uL Hgb (12.0-16.0) g/dL Hct (36-46) % MCV (80-100) fL MCH (26-34) PG MCHC (30-36) % RDW (11.6-14.8) % Plt Count (150-400) X10^3/uL Neut % (Auto) (50-75) % Lymph % (Auto) (25-40) % [place] % (Auto) (3-14) % Eos % (Auto) (2-4) % Baso % (Auto) (0-2) % Neut # (Auto) (8128-7405) /uL Lymph # (Auto) (6166-0256) /uL Payette # (Auto) (0-900) /uL Eos # (Auto) (0-450) /uL Baso # (Auto) (0-100) /uL PT (10.1-12.7) SECONDS INR (0.9-1.3) APTT (26-36) SECONDS Sodium (137-145) mmol/L Potassium (3.4-5.1) mmol/L Chloride (98-107) mmol/L Carbon Dioxide (22-32) mmol/L BUN (7-17) mg/dL Creatinine (0.52-1.04) mg/dL Estimated GFR (>60) mL/min BUN/Creatinine Ratio (6-22) Glucose (80-110) mg/dL Calcium (8.4-10.2) mg/dL Total Bilirubin (0.2-1.3) mg/dL AST (14-36) IU/L ALT (<35) IU/L Alkaline Phosphatase (38-126) U/L Total Creatine Kinase (30-135) U/L CK-MB (CK-2) CK-MB (CK-2) Rel Index Troponin I < 0.012 (0.01-0.034) ng/mL NT-Pro-B Natriuret Pep (<450) pg/mL Total Protein (6.3-8.2) g/dL Albumin (3.5-5.0) g/dL Globulin (1.7-4.1) g/dL Albumin/Globulin Ratio (1.0-2.8) Lipase (23-300) U/L Procalcitonin (<0.5) ng/mL SARS-CoV-2 (PCR) Negative (Negative) Influenza A (RT-PCR) Flu a negative (NEGATIVE) Influenza B (RT-PCR) Flu b negative (NEGATIVE) RSV (PCR) Negative (Negative) Imaging Data Chest x-ray: Radiologist's Impression: [address] [place] [id number] XRay Report Signed Patient: Ambrose Mathew MR#: [id number] : 1940 Acct:[id number] Age/Sex: 81 / F Date of Service: 02/19/22 Loc: ED Accession Number: [id number] ?? Procedure: XR chest 1V Ordering Provider: Ana Slade D.O. PROCEDURE:? XR CHEST 1V ? INDICATIONS:? chest pain ? TECHNIQUE:? One view of the chest was acquired.? ? COMPARISON:? None. ? FINDINGS: Heart size is enlarged.? Mild vascular congestion present.? There is obscuration of left hemidiaphragm with a blunting of left costophrenic angle.? Minimal right basilar atelectasis present as well. Generalized decrease in osseous mineralization noted. ? IMPRESSION:? ? Cardiomegaly, mild vascular congestion left pleural effusion with atelectasis and or infiltrate ? ? ? Approved by: Jared Ramos M.D. on 02/19/2022 at 16:34? ECG Data Interpretation: Sinus rhythm rate 75 CA interval 162 QRS 98 QTC 42 PVCs noted MDM Narrative Medical decision making narrative: According to records of from Dr. Jacobo in October of 2021 she has previously been compensated when it that LV ejection fraction of 35-40% but is progressively worsening previously it was 45-50%. She was not on spironolactone because of hyperkalemia. She does have a history of frequent PVCs nonischemic cardiomyopathy and nonsustained ventricular tachycardia. Today her BNP is elevated at 5900 she is not on any diuretics. She is given a dose of Lasix here in the ED she has urinated twice ambulation trial she did not get short of breath O2 did drop into the 90%. Overall patient feels ready and able to go home. Will put her on a few days of lasix. Patient has history of congestive heart failure with symptoms and workup consistent with congestive heart failure. At this time I see no need for further workup pulmonary embolism coronary artery disease were considered along with pneumonia. However at this time no further workup indicated Discharge Plan Departure Patient Disposition: Home Clinical Impression: Congestive heart failure Instructions: DI for Heart Failure Activity Restrictions/Additional Instructions: *You have been diagnosed with congestive heart failure *What to do: At this time you have water on your lungs causing increased difficulty breathing. *Continue to take medications as directed Lasix 20 mg once a day for 3 days *Follow up with your primary care provider in 2-3 days or call [phone] *Return to ER if you should have increasing chest pain shortness of breath dizziness weakness fever or any new, worsening or concerning symptoms Prescriptions: New furosemide [Lasix] 20 mg tablet 20 mg PO DAILY Qty: 3 0RF No Action magnesium oxide 500 MG tablet 250 mg PO Q DAY Qty: 0 lisinopril 5 mg tablet 5 mg PO DAILY metoprolol succinate 100 mg tablet extended release 24 hr 100 mg PO BID melatonin 3 mg capsule 3 mg PO BEDTIME PRN (Reason: Sleep) aspirin 81 mg tablet,delayed release (DR/EC) 81 mg PO DAILY omeprazole 40 mg capsule,delayed release(DR/EC) See Rx Instructions .ROUTE .COMPLEX Qty: 30 0RF Dose Instruction: take 1 tablet by mouth daily 30 MINUTES PRIOR TO DINNER Rx Instructions: take 1 tablet by mouth every other day 30 MINUTES PRIOR TO DINNER for 1-2 weeks and then discontinue Miralax 1 pkg DAILY cholecalciferol (vitamin D3) [Vitamin D3] 1,000 unit Capsule 1,000 unit PO DAILY Referrals: Rita Ruiz DO [Primary Care Provider] - Visit Report Forms: Patient Portal/API
[2022-02-19 17:08] LABS: INR 1.1 (0.9-1.3); Prothrombin Time 12.5 SECONDS (10.1-12.7)
[2022-02-19 17:10] LABS: PTT Partial Thromboplastin Tim 33 SECONDS (26-36)
[2022-02-19 17:12] LABS: Alanine Aminotransferase 33 IU/L (<35); Albumin Globulin Ratio 1.3 (1.0-2.8); Alkaline Phosphatase 103 U/L (38-126); Aspartate Aminotransferase 29 IU/L (14-36); Blood Urea Nitrogen 24 mg/dL (7-17); Calcium 8.6 mg/dL (8.4-10.2); Carbon Dioxide 22 mmol/L (22-32); Chloride 109 mmol/L (98-107); Creatine Kinase 73 U/L (30-135); Estimated Glomerular Filt Rate 51 mL/min (>60); Glucose 95 mg/dL (80-110); Lipase 51 U/L (23-300); Potassium 4.5 mmol/L (3.4-5.1); Sodium 141 mmol/L (137-145)
[2022-02-19 17:28] LABS: Procalcitonin 0.04 ng/mL (<0.5)
[2022-02-19 17:40] LABS: NT-proBNP (BNP-Adult 18+) 5190 pg/mL (<450); Troponin I < 0.012 ng/mL (0.01-0.034)
[2022-02-19 17:41] LABS: HEMOLYSIS 69 (0-50)
[2022-02-19] MEDS: FUROSEMIDE 40 MG/4 ML VIAL IV (18:08)
[2022-02-19 18:11] LABS: Influenza A - CEPHEID Flu A NEGATIVE (NEGATIVE); Influenza B - CEPHEID Flu B NEGATIVE (NEGATIVE); Respiratory Syncytial Virus Negative (Negative)
[2022-02-19 18:22] LABS: COVID-19 CEPHEID 4-PLEX PCR Negative (Negative)
--- NOTE | 2022-02-19 19:11 | PC.NURSE ---
Pt ambulated down [place], lowest pulse ox reading 90%, pt denies SOB, Dr. Slade notified.
[2022-02-19 19:53] LABS: Troponin I < 0.012 ng/mL (0.01-0.034)
== END 2022-02-19 20:55 | disposition home or self-care (01) ==
PROVIDERS: Emergency Medicine; Emergency Provider Emergency Medicine; PCP Family Medicine
DX: I50.9 Heart failure, unspecified (principal); R07.9 Chest pain, unspecified; R79.89 Other specified abnormal findings of blood chemistry; Z79.899 Other long term (current) drug therapy
CPT/HCPCS: 0241U; 36415; 71045; 80053; 82550; 83690; 83880; 84145; 84484; 85025; 85610; 85730; 93005; 96374; 99284; J1940

== ENCOUNTER 2022-07-15 10:50 | Emergency (ER) | payer MEDICARE, OTHER, SELFPAY ==
[2022-07-15] VITALS (8 sets, daily range): BP systolic 152–181; BP diastolic 71–85; PULSE 63–75; RESP 16–22; TEMP 36.6; O2SAT 91–99
[2022-07-15 11:37] LABS: Add Manual Diff / Slide Review NO; Basophils Absolute Auto 0 /uL (0-100); Basophils Percent Auto 0.8 % (0-2); Eosinophils Absolute Auto 200 /uL (0-450); Eosinophils Percent Auto 4.3 % (2-4); Hematocrit 42.1 % (36-46); Hemoglobin 14.3 g/dL (12.0-16.0); Lymphocytes Absolute Auto 1000 /uL (1100-4500); Lymphocytes Percent Auto 19.4 % (25-40); Mean Corpuscular HGB Conc 33.9 % (30-36); Mean Corpuscular Volume 91.5 fL (80-100); Monocytes Absolute Auto 400 /uL (0-900); Monocytes Percent Auto 7.6 % (3-14); Neutrophils Absolute Auto 3300 /uL (1500-7000); Neutrophils Percent Auto 67.9 % (50-75); Platelet Count 157 X10^3/uL (150-400); Red Cell Distribution Width 14.8 % (11.6-14.8); White Blood Cell Count 4.9 X10^3/uL (4.5-11.0)
[2022-07-15 11:43] LABS: Alanine Aminotransferase 22 IU/L (<35); Albumin 4.2 g/dL (3.5-5.0); Albumin Globulin Ratio 1.4 (1.0-2.8); Alkaline Phosphatase 83 U/L (38-126); Aspartate Aminotransferase 29 IU/L (14-36); Bilirubin Total 1.1 mg/dL (0.2-1.3); Blood Urea Nitrogen 21 mg/dL (7-17); Calcium 8.9 mg/dL (8.4-10.2); Carbon Dioxide 30 mmol/L (22-32); Chloride 103 mmol/L (98-107); Estimated Glomerular Filt Rate 53 mL/min (>60); Globulin 2.9 g/dL (1.7-4.1); Glucose 78 mg/dL (80-110); HEMOLYSIS < 15 (0-50); Potassium 3.8 mmol/L (3.4-5.1); Sodium 139 mmol/L (137-145); Total Protein 7.1 g/dL (6.3-8.2)
--- NOTE | 2022-07-15 11:44 | ED_ITS ---
HPI - Eye Problem General Chief complaint: Eye Problems Stated complaint: Left eye blurry,swelling under eye.t-1 2200 Time Seen by Provider: 07/15/22 11:14 Source: patient and EMS Mode of arrival: EMS History of Present Illness HPI Narrative: Patient is a 82-year-old female with history of TIA causing hemianopsia fully resolved, congestive heart failure, hypertension presenting today with right facial swelling and right blurry vision. She denies numbness tingling or weakness she has no loss of vision, no double vision no erythema not wear corrective lenses she does not have eye irritation. She denies any injury to her eye. She has no chest pain palpitations or shortness of breath. She was seen evaluated at walk-in clinic thought to have facial drooping and high blood pressure sent here for TIA workup. She reports that she woke up noticing that her right eye was drooping but that it was pretty swollen inferiorly. Related Data Home Medications Medication Instructions Recorded Confirmed magnesium oxide 500 mg tablet 250 mg PO Q DAY ##0 07/04/16 08/25/21 cholecalciferol (vitamin D3) 25 1,000 unit PO DAILY 09/21/17 08/25/21 mcg (1,000 unit) capsule (Vitamin D3) lisinopril 5 mg tablet 5 mg PO DAILY 10/25/19 08/25/21 metoprolol succinate 100 mg 100 mg PO BID 10/25/19 08/25/21 tablet,extended release 24 hr melatonin 3 mg capsule 3 mg PO BEDTIME PRN Sleep 04/20/20 08/25/21 aspirin 81 mg tablet,delayed 81 mg PO DAILY 11/14/20 08/25/21 release Miralax 1 pkg DAILY 08/10/21 08/25/21 Previous Rx's Medication Instructions Recorded omeprazole 40 mg capsule,delayed See Rx Instructions .Route 02/02/22 release .COMPLEX #30 caps furosemide 20 mg tablet (Lasix) 20 mg PO DAILY #3 tabs 02/19/22 Allergies Allergy/AdvReac Type Severity Reaction Status Date / Time acyclovir [ACYCLOVIR] Allergy Severe Irreg Verified 07/15/22 11:02 heart rate fentanyl Allergy Severe NAUSEA AND Verified 07/15/22 11:02 EMESIS Sulfa (Sulfonamide Allergy Severe Rash, fever Verified 07/15/22 11:02 Antibiotics) [SULFA (SULFONAMIDE ANTIBIOTICS)] trospium Allergy Severe ED, hives, Verified 07/15/22 11:02 facial and LE edema furosemide Allergy Intermediate Swelling Verified 07/15/22 11:02 of Lip/Tongue/Throat torsemide Allergy Intermediate Swelling Verified 07/15/22 11:02 of Lip/Tongue/Throat cephalexin [CEPHALEXIN] Allergy Mild Rash Verified 07/15/22 11:02 clindamycin Allergy Mild Lip Verified 07/15/22 11:02 swelling sacubitril [From Entresto] Allergy Mild Swelling Verified 07/15/22 11:02 of Lip/Tongue/Throat valsartan [From Entresto] Allergy Mild Swelling Verified 07/15/22 11:02 of Lip/Tongue/Throat amoxicillin Allergy Rash Verified 07/15/22 11:02 general anethesia AdvReac Severe Vomiting Uncoded 07/15/22 10:59 Review of Systems Review of Systems ROS Unobtainable: All systems reviewed & are unremarkable except as noted in HPI and below Patient History Medical History Allergic reaction Arthritis Cardiomyopathy Chickenpox Constipation GERD (gastroesophageal reflux disease) Hemorrhoids History of tumor Hyperlipidemia Hypertension Inguinal hernia of left side without obstruction or gangrene (05/29/17) Irregular heartbeat Measles Nontoxic multinodular goiter Osteopenia PFO (patent foramen ovale) Pneumonia Rib pain on right side Sinus drainage Tinnitus UTI (urinary tract infection) Surgical History Anesthesia complication H/O left inguinal hernia repair History of bilateral tubal ligation History of cataract removal with insertion of prosthetic lens Status post breast biopsy Status post colonoscopy Status post tubal ligation Family History Mother History of colon cancer Brother No problems noted. Brother No problems noted. Father No problems noted. Grandmother No problems noted. Grandmother No problems noted. Social History household members: spouse Smoking Status: Never smoker alcohol intake: current Smoking Status: Never smoker alcohol intake frequency: a few times a month Substance Use Type: does not use Exam Initial Vital Signs Initial Vital Signs: Vital Signs Pulse Oximetry 91 07/15/22 10:59 Scores NIH Stroke Scale Level of Conciousness: Alert, keenly responsive Ask month/age: Answers both questions correctly. Open/close eyes, close hand: Performs both tasks correctly Best gaze horizontal: Normal Visual crum: No visual loss Facial palsy: Normal symetrical movement Left arm drift: No drift for full 10 sec Right arm drift: No drift for full 10 sec Left leg drift: No drift for full 5 sec Right leg drift: No drift for full 5 sec Limb ataxia: Absent Sensory on face/arms/legs: Normal, no sensory loss Best language: No aphasia, normal Dysarthria: Normal Extinction or inattention: No abnormality Total NIH Stroke scale score: 0 Course Orders Ordered: ED Orders 07/15/22 11:11 Complete Blood Count AUTO DIFF Stat Comprehensive Metabolic Panel Stat Vital Signs Vital signs: Vital Signs - 8 hr 07/15/22 11:30 07/15/22 11:30 07/15/22 12:00 Pulse Rate 67 63 Respiratory Rate 22 20 Blood Pressure 165/73 H Pulse Oximetry 97 97 Oxygen Delivery Method Room Air 07/15/22 12:34 07/15/22 12:55 07/15/22 13:04 Pulse Rate 66 65 68 Respiratory Rate 16 16 Blood Pressure 164/73 H 152/71 H Pulse Oximetry 98 98 98 Oxygen Delivery Method Room Air Room Air MDM - Eye Problem Lab Data 07/15/22 11:11 07/15/22 11:11 Labs: Lab Results 07/15/22 07/15/22 Range/Units 11:11 11:11 WBC 4.9 (4.5-11.0) X10^3/uL RBC 4.60 (4.0-5.2) X10^6/uL Hgb 14.3 (12.0-16.0) g/dL Hct 42.1 (36-46) % MCV 91.5 (80-100) fL MCH 31.0 (26-34) PG MCHC 33.9 (30-36) % RDW 14.8 (11.6-14.8) % Plt Count 157 (150-400) X10^3/uL Neut % (Auto) 67.9 (50-75) % Lymph % (Auto) 19.4 L (25-40) % [place] % (Auto) 7.6 (3-14) % Eos % (Auto) 4.3 H (2-4) % Baso % (Auto) 0.8 (0-2) % Neut # (Auto) 3300 (2273-6706) /uL Lymph # (Auto) 1000 L (0637-0462) /uL [place] # (Auto) 400 (0-900) /uL Eos # (Auto) 200 (0-450) /uL Baso # (Auto) 0 (0-100) /uL Sodium 139 (137-145) mmol/L Potassium 3.8 (3.4-5.1) mmol/L Chloride 103 (98-107) mmol/L Carbon Dioxide 30 (22-32) mmol/L BUN 21 H (7-17) mg/dL Creatinine 1.05 H (0.52-1.04) mg/dL Estimated GFR 53 L (>60) mL/min BUN/Creatinine Ratio 20.0 (6-22) Glucose 78 L (80-110) mg/dL Calcium 8.9 (8.4-10.2) mg/dL Total Bilirubin 1.1 (0.2-1.3) mg/dL AST 29 (14-36) IU/L ALT 22 (<35) IU/L Alkaline Phosphatase 83 (38-126) U/L Total Protein 7.1 (6.3-8.2) g/dL Albumin 4.2 (3.5-5.0) g/dL Globulin 2.9 (1.7-4.1) g/dL Albumin/Globulin Ratio 1.4 (1.0-2.8) Urine Dip Bedside Urine Glucose Negative Bedside Urine Bilirubin - Negative Bedside Urine Ketone - Negative Urine Specific Mobile 1.015 Bedside Urine Occult Blood - Negative Bedside Urine pH 6.0 Bedside Urine Protein - Negative Bedside Urine Urobilinogen - Negative Bedside Urine Nitrite - Negative Bedside Urine Leukocytes - Negative Esterase MDM Narrative Medical decision making narrative: Patient is a 82-year-old female presenting today with some left facial swelling and right blurry vision no hemianopsia neurovascularly she is intact. Sent here for stroke rule out however I have no suspicion for stroke. She has no numbness tingling or weakness she literally has some facial swelling which is now gone. She has no erythema she no evidence of infection. She is adamant that she does not have visual loss than on exam she has no peripheral have any hypoxia. She does not think she is having a stroke. She was sent here by walk-in clinic. She was apparently complaining of right droopy eye but she says her I was not droopy her it was just swollen. She does have an obvious area her zygomatic arch which is swollen. She denies any injury blood work is overall reassuring. NIH stroke scale is 0. Blood pressure stable Discharge Plan Departure Patient Disposition: Home Clinical Impression: Facial swelling Instructions: DI for Double Vision Activity Restrictions/Additional Instructions: *You have been diagnosed with facial swelling, blurry vision *What to do: At this time this is not appear that you had a stroke. Unclear what caused some blurry vision and facial swelling *Continue to take medications as directed *Follow up with your primary care provider in 2-3 days or call [phone] *Return to ER if you should have worsening facial swelling blurry vision loss of vision numbness tingling weakness facial droop difficulty speaking [or] any new, worsening or concerning symptoms Prescriptions: No Action magnesium oxide 500 MG tablet 250 mg PO Q DAY Qty: 0 lisinopril 5 mg tablet 5 mg PO DAILY metoprolol succinate 100 mg tablet extended release 24 hr 100 mg PO BID melatonin 3 mg capsule 3 mg PO BEDTIME PRN (Reason: Sleep) aspirin 81 mg tablet,delayed release (DR/EC) 81 mg PO DAILY omeprazole 40 mg capsule,delayed release(DR/EC) See Rx Instructions .ROUTE .COMPLEX Qty: 30 0RF Dose Instruction: take 1 tablet by mouth daily 30 MINUTES PRIOR TO DINNER Rx Instructions: take 1 tablet by mouth every other day 30 MINUTES PRIOR TO DINNER for 1-2 weeks and then discontinue Miralax 1 pkg DAILY cholecalciferol (vitamin D3) [Vitamin D3] 1,000 unit Capsule 1,000 unit PO DAILY furosemide [Lasix] 20 mg tablet 20 mg PO DAILY Qty: 3 0RF Referrals: Rita Ruiz DO [Primary Care Provider] - Stand Alone Forms: Patient Portal/API
== END 2022-07-15 13:03 | disposition home or self-care (01) ==
PROVIDERS: Emergency Provider Emergency Medicine; PCP Family Medicine
DX: R22.0 Localized swelling, mass and lump, head (principal); H53.8 Other visual disturbances
CPT/HCPCS: 36415; 80053; 81003; 85025; 99283

== ENCOUNTER → 2022-09-14 12:24 | Outpatient (CLI) | payer MEDICARE, OTHER, SELFPAY ==
--- NOTE | 2022-09-14 | DI.ECHO.S_ITS ---
[facility] +---------+ : : [address] : : [place] : : : : [id number] : : : : Phone: [phone]+ Echocardiogram Report + + :Name: NICKO DELATORRE Study Date: 09/14/2022 Height: 65 in : :[facility] ReadingLocation: Weight: 143 lb : : Gender: Female BSA: 1.7 m2 : :: 1940 Age: 82 yrs BP: 157/98 mmHg: :Reason For Study: CARDIOMYOPATHY : :Ordering Physician: AMARJIT, : :MAURO Performed By: Samara Fong : :Referring: MAURO OCASIO : + + Interpretation Summary The patient was in sinus rhythm with heart rates between 59-66 bpm during the exam. The left ventricle is normal in size. The ejection fraction is estimated to be 35-40%. Overall moderate global hypokinesis however severe hypokinesis of basal to mid septum. Diastolic parameters suggest a pseudonormalization pattern, consistent with probable elevated filling pressures. (In November 2014, LVEF was about 35 to 40%. September 16, 2016, LVEF 35 to 40%. July 2017, LVEF 40 to 45% and August 18, 2020, 45 to 50%). The right ventricle is normal in size and function. 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 Seen on previous images as well. There is moderate mitral regurgitation. Compared to the prior echo study, there has been no change in the severity of mitral regurgitation. No systolic reversal of pulmonary vein. There is mild to moderate aortic regurgitation. Compared to the prior echo study, there has been no change in the severity of aortic regurgitation. There is moderate tricuspid regurgitation. Previously mild to moderate TR. The right ventricular systolic pressure is estimated to be at least 29.3 mmHg based on an estimated right atrial pressure of 3 mm Hg. 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 4.0 cm in diameter. Unchanged from the previous study. Procedure: A two-dimensional transthoracic echocardiogram with color flow and Doppler was performed. The study quality was technically adequate. Comparison is made with the echocardiogram of 11/18/2020, 08/18/2020. The patient was in sinus rhythm with heart rates between 59-66 bpm during the exam. Left Ventricle: The left ventricle is normal in size. Proximal septal thickening is noted. There is no echo evidence for significant left ventricular outflow tract obstruction. There is no thrombus. The ejection fraction is estimated to be 35-40%. Overall moderate global hypokinesis however severe hypokinesis of basal to mid septum. Diastolic parameters suggest a pseudonormalization pattern, consistent with probable elevated filling pressures. Right Ventricle: The right ventricle is normal in size and function. Atria: The left atrium is severely dilated. The left atrium has mildly increased in size since the prior echo exam. The right atrium is mildly dilated. 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 Mitral Valve: The mitral valve leaflets appear mildly thickened, but open well. There is mild mitral annular calcification. There is moderate mitral regurgitation. There are multiple regurgitant jets present. Compared to the prior echo study, there has been no change in the severity of mitral regurgitation. No systolic reversal of pulmonary vein. Aortic Valve: The aortic valve is trileaflet. The aortic valve opens well. There is no aortic valve stenosis. There is mild to moderate aortic regurgitation. Compared to the prior echo study, there has been no change in the severity of aortic regurgitation. Tricuspid Valve: The tricuspid valve is normal. There is moderate tricuspid regurgitation. The right ventricular systolic pressure is estimated to be at least 29.3 mmHg based on an estimated right atrial pressure of 3 mm Hg. Pulmonic Valve: The pulmonic valve leaflets are thin and pliable; valve motion is normal. There is mild pulmonic regurgitation. Great Vessels: The aortic root is normal size. The ascending aorta is mild- moderately enlarged. The IVC is of normal diameter and collapses greater than 50% with a sniff. This suggests a low right atrial pressure of 3 mm Hg. Pericardium/ Pleura There is a trivial pericardial effusion noted. There is no pleural effusion. MMode/2D Measurements & Calculations LVIDd: 5.2 cm LVOT diam: 2.0 cm LVIDs: 4.2 cm Ao root diam: 3.4 cm FS: 19.1 % asc Aorta Diam: 4.0 cm EPSS: 1.8 cm Ao Arch Diam (Prox Trans): 3.7 cm IVSd: 1.2 cm LVPWd: 0.73 cm LV thrasher. diameter/BSA (cm/m^2): 3.0 LV sys. diameter/BSA (cm/m^2): 2.5 LA A2 area: 29.7 cm2 RA long axis: 5.1 cm LA A4 area: 26.2 cm2 RA area: 17.6 cm2 LA length (vol): 6.3 cm RA vol: 51.8 ml LA vol: 104.2 ml RA : 30.2 ml/m2 LA vol index: 60.8 ml/m2 IVC diam: 1.4 cm RVD1 (basal): 3.2 cm RVD2 (mid): 3.0 cm TAPSE: 1.7 cm Doppler Measurements & Calculations Ao V2 max: 118.1 cm/sec LVOT Max Stevo: 103.9 cm/sec Ao V2 mean: 84.4 cm/sec LV V1 max P.3 mmHg Ao max P.6 mmHg LV V1 VTI: 20.8 cm Ao mean P.2 mmHg PONCE(I,D): 2.6 cm2 Ao V2 VTI: 26.4 cm PONCE(V,D): 2.8 cm2 sev ratio: 0.79 PONCE indexed to BSA (cm^2/m^2): 1.5 AI P1/2t: 650.5 msec AI dec slope: 197.1 cm/sec2 MV E max stevo: 65.2 cm/sec TR max stevo: 256.2 cm/sec MV A max stevo: 51.6 cm/sec TR max P.3 mmHg MV E/A: 1.3 PA V2 max: 66.9 cm/sec Med Peak E' Stevo: 3.6 cm/sec PA V2 mean: 49.8 cm/sec E/E' med: 18.3 PA mean P.1 mmHg Lat Peak E' Stevo: 7.5 cm/sec PA pr(Accel): 31.0 mmHg E/E' lat: 8.7 E/e' average: 13.5 MV dec time: 0.27 sec SV(LVOT): 67.4 ml Reading Physician:04:00 PM
== END ==
PROVIDERS: PCP Family Medicine; Referring Provider Internal Medicine Cardiovascular Disease; Visit Provider Internal Medicine Cardiovascular Disease
DX: I42.8 Other cardiomyopathies (principal); I34.0 Nonrheumatic mitral (valve) insufficiency; I35.1 Nonrheumatic aortic (valve) insufficiency; I07.1 Rheumatic tricuspid insufficiency; I51.7 Cardiomegaly
CPT/HCPCS: 93306

== ENCOUNTER → 2024-07-13 | Outpatient (CLI) | payer MEDICARE, OTHER, SELFPAY ==
--- NOTE | 2024-07-13 | DI.ECHO.S_ITS ---
[facility] : : [address] : : [place] : : [id number] : : Phone: [phone] Echocardiogram Report + + :Name: NICKO DELATORRE Study Date: 07/13/2024 Height: 65 in : :[facility] ReadingLocation: Weight: 130 lb : : Gender: Female BSA: 1.6 m2 : :: 1940 Age: 84 yrs BP: 158/96 mmHg: :Reason For Study: NON-ISCHEMIC CARDIOMYOPATHY : :Ordering Physician: SHELBY, : :LUIS MANUEL Leahy Performed By: Shayne Wang : :Referring: LUIS MANUEL RYAN : + + Interpretation Summary The left ventricle is normal in size. The ejection fraction is estimated to be 45-50%. Compared to the prior exam, the left ventricular function is improved. Previous LVEF 35 to 40%. (In November 2014, LVEF was about 35 to 40%. September 16, 2016, LVEF 35 to 40%. July 2017, LVEF 40 to 45% and August 18, 2020, 45 to 50%). The right ventricle is normal in size and function. There is moderate mitral regurgitation. Compared to the prior echo study, there has been no change in the severity of mitral regurgitation. There is mild to moderate aortic regurgitation. Compared to the prior echo study, there has been no change in the severity of aortic regurgitation. There is moderate tricuspid regurgitation. Compared to the prior echo exam, there has been no change in TR severity. The right ventricular systolic pressure is estimated to be at least 37 mmHg based on an estimated right atrial pressure of 3 mm Hg. Previously 29.3 mmHg. 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 4.1 cm in diameter. Previously 4.0 cm. Procedure: A two-dimensional transthoracic echocardiogram with color flow and Doppler was performed. The study quality was technically good. Comparison is made with the echocardiogram of 09/14/2022. The patient was in normal sinus rhythm during the exam. Left Ventricle: The left ventricle is normal in size. Left ventricular wall thickness is mildly increased. Proximal septal thickening is noted. There is no thrombus. The ejection fraction is estimated to be 45-50%. Compared to the prior exam, the left ventricular function is improved. Basal septal hypokinesis. MV E/A: 1.3 Med Peak E' Stevo: 5.4 cm/sec E/E' med: 11.5. Right Ventricle: The right ventricle is normal in size and function. Atria: The left atrium is severely dilated. There has been no significant change since the previous study. The right atrium is mildly dilated. 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 There has been no significant change since the previous study. Mitral Valve: The mitral valve leaflets appear mildly thickened, but open well. There is mild mitral annular calcification. There is moderate mitral regurgitation. There are multiple regurgitant jets present. Compared to the prior echo study, there has been no change in the severity of mitral regurgitation. Aortic Valve: The aortic valve is trileaflet. The aortic valve opens well. There is mild to moderate aortic regurgitation. Compared to the prior echo study, there has been no change in the severity of aortic regurgitation. Tricuspid Valve: The tricuspid valve is normal. There is moderate tricuspid regurgitation. The right ventricular systolic pressure is estimated to be at least 37 mmHg based on an estimated right atrial pressure of 3 mm Hg. Compared to the prior echo exam, there has been no change in TR severity. Pulmonic Valve: The pulmonic valve leaflets are thin and pliable; valve motion is normal. There is trace pulmonic regurgitation. Great Vessels: The aortic root is normal size. The ascending aorta is mild- moderately enlarged. The pulmonary artery is normal size. The IVC is of normal diameter and collapses greater than 50% with a sniff. This suggests a low right atrial pressure of 3 mm Hg. Pericardium/ Pleura There is no pericardial effusion. There is no pleural effusion. MMode/2D Measurements & Calculations LVIDd: 4.8 cm LVOT diam: 2.0 cm LVIDs: 3.8 cm Ao root diam: 3.4 cm FS: 19.8 % asc Aorta Diam: 4.1 cm EPSS: 1.4 cm Ao Arch Diam (Prox Trans): 2.2 cm IVSd: 1.1 cm LVPWd: 1.1 cm LV thrasher. diameter/BSA (cm/m^2): 2.9 LV sys. diameter/BSA (cm/m^2): 2.3 LA A2 area: 28.0 cm2 RA long axis: 5.5 cm LA A4 area: 29.8 cm2 RA area: 19.6 cm2 LA length (vol): 6.9 cm RA vol: 59.4 ml LA vol: 102.2 ml RA : 36.1 ml/m2 LA vol index: 62.0 ml/m2 IVC diam: 1.5 cm RVD1 (basal): 3.4 cm RVD2 (mid): 3.2 cm TAPSE: 2.5 cm Doppler Measurements & Calculations Ao V2 max: 142.7 cm/sec LVOT Max Stevo: 92.5 cm/sec Ao V2 mean: 95.1 cm/sec LV V1 max P.4 mmHg Ao max P.1 mmHg LV V1 VTI: 18.4 cm Ao mean P.1 mmHg PONCE(I,D): 1.9 cm2 Ao V2 VTI: 29.3 cm PONCE(V,D): 1.9 cm2 sev ratio: 0.63 PONCE indexed to BSA (cm^2/m^2): 1.1 AI P1/2t: 396.1 msec AI dec slope: 375.6 cm/sec2 MV E max stevo: 61.4 cm/sec TR max stevo: 285.5 cm/sec MV A max stevo: 45.7 cm/sec TR max P.6 mmHg MV E/A: 1.3 PA V2 max: 65.0 cm/sec Med Peak E' Stevo: 5.4 cm/sec PA V2 mean: 39.2 cm/sec E/E' med: 11.5 PA mean P.74 mmHg Lat Peak E' Stevo: 8.6 cm/sec PA pr(Accel): 31.0 mmHg E/E' lat: 7.2 E/e' average: 9.3 MV dec time: 0.17 sec MR ERO: 0.23 cm2 MR PISA: 3.8 cm2 SV(LVOT): 55.2 ml MR flow rate: 139.5 cm3/sec MR PISA radius: 0.78 cm Reading Physician:04:07 PM
== END ==
LOC: ECHO 14:36
PROVIDERS: PCP Nurse Practitioner; Referring Provider Nurse Practitioner; Visit Provider Nurse Practitioner
DX: I08.3 Combined rheumatic disorders of mitral, aortic and tricuspid valves (principal); I42.8 Other cardiomyopathies; I77.89 Other specified disorders of arteries and arterioles
CPT/HCPCS: 93306